=== PATIENT | male | born 1970 | race Caucasian/White ===

== ENCOUNTER 2023-11-03 04:30 | Inpatient (IN) | payer MEDICARE, MEDICAID, SELFPAY ==
[2023-11-03] VITALS (14 sets, daily range): BP systolic 102–118; BP diastolic 47–88; PULSE 124–140; RESP 18–24; TEMP 35.9–38.1; O2SAT 90–99; BMI 40.1
--- NOTE | ~2023-11-03 | CT_ITS ---
Clinical Indication: Sepsis CT Scan of the Chest, Abdomen, and Pelvis without Contrast: Technique: Contiguous sections were acquired throughout the chest, abdomen, and pelvis without IV con trast administration. Dose reduction technique was used on this scan by utilizing automated exposure control and iterative reconstruction technique. The dose-length product (DLP) was 2168.38 mGy-cm. Findings: There is no evidence of any significant mediastinal, hilar or axillary lymphadenopathy. The mediastin al soft tissues appear normal. There is no evidence of pleural or pericardial effusion. The lungs are clear, aside from dependent bibasilar atelectatic changes. The liver, pancreas, gallbladder, and adrenal glands are within normal limits. Spleen is enlarged, me asuring 19.1 cm in length. Nonobstructing right renal stones are present, measuring up to 5 mm in tayler meter. Left kidney is relatively enlarged. There is 15 mm stone at the left renal pelvis region. Ther e is a possible subcapsular left hematoma, with additional left perinephric asymmetric stranding. The re is focal air in the left lower renal pole, versus possibly within a subcapsular collection (axial image 185). There is additional air within the left ureter and left renal pelvis. No left hydronephro sis evident. No evidence of aortic aneurysm. No lymphadenopathy. No bowel obstruction. Possible wall thickening of the distal rectum versus underdistention. Possible wall thickening descending colon versus underdistention. There is air within the urinary bladder. Suprapubic catheter in place. 3 mm urinary bladder stone pre sent. There is air within the prostate or the prostatic urethra. No ascites present in the pelvis. Impression: Mildly enlarged left kidney versus possibility of isodense subcapsular hematoma of the left kidney. C orrelate with any relevant clinical history. Contrast enhanced exam, or possibly ultrasound, could be used to further evaluate for subcapsular hematoma. Focal air either within the left kidney parenchyma versus within a potential subcapsular collection n ear the lower pole. There is additional air in the left ureter and left renal pelvis. Correlate for e mphysematous pyelonephritis/pyelitis versus other iatrogenic air. Bilateral renal stones, as detailed above, largest of the left renal pelvis measuring 15 mm. Air in urinary bladder and the prostate gland or prostatic urethra, with suprapubic catheter in place . Splenomegaly. Questionable areas of wall thickening of the large bowel versus areas of under distention. Correlate for any possibility of colitis. Reviewed, dictated and finalized at location M. Impression: Mildly enlarged left kidney versus possibility of isodense subcapsular hematoma of the left kidney. Correlate with any relevant clinical history. Contrast enh anced exam, or possibly ultrasound, could be used to further evaluate for subca psular hematoma. Focal air either within the left kidney parenchyma versus within a potential martin bcapsular collection near the lower pole. There is additional air in the left u reter and left renal pelvis. Correlate for emphysematous pyelonephritis/pyeliti s versus other iatrogenic air. Bilateral renal stones, as detailed above, largest of the left renal pelvis taylor suring 15 mm. Air in urinary bladder and the prostate gland or prostatic urethra, with suprap ubic catheter in place. Splenomegaly. Questionable areas of wall thickening of the large bowel versus areas of under distention. Correlate for any possibility of colitis.
--- NOTE | ~2023-11-03 | US_ITS ---
EXAMINATION: US renal BI DATE: 11/04/2023 15:44 INDICATION: Acute kidney injury. TECHNIQUE: Multiple ultrasound grayscale images of the kidneys were obtained. COMPARISON: CT 11/03/2023 FINDINGS: Sensitivity is decreased by obesity. The right kidney measures 6.6 x 11.1 x 7.8 cm. The left kidney m easures 8.9 x 15.9 x 9.2 cm. There is a subcapsular hematoma of left kidney. There is no hydronephros is. The bladder is decompressed by a Wisdom catheter. IMPRESSION: 1. Subcapsular hematoma of left kidney. Reviewed, dictated and finalized at location A.
--- NOTE | ~2023-11-03 | US_ITS ---
EXAMINATION: US abdomen complete DATE: 11/03/2023 11:49 INDICATION: Hyperbilirubinemia. TECHNIQUE: Multiple grayscale and Doppler ultrasound images of the abdomen were obtained. COMPARISON: CT abdomen and pelvis 11/03/2023 FINDINGS: The visualized portions of the head and body of the pancreas are normal. The liver demonstr ates coarsened echotexture and surface nodularity, consistent with cirrhosis. There is normal flow in main portal vein. The gallbladder is distended. No visible gallstones. Gallbladder wall thickening i s noted, likely secondary to cirrhosis. Right kidney is normal. There is severe splenomegaly. The lef t kidney is not well visualized. Abdominal aorta and inferior vena cava are not well visualized. IMPRESSION: 1. Cirrhosis of liver with portal venous hypertension. 2. Gallbladder distention, which may be secondary to fasting. Acute cholecystitis cannot be excluded. If there is clinical concern for acute cholecystitis, consider hepatobiliary scintigraphy. 3. Left kidney not well visualized. Reviewed, dictated and finalized at location A. IMPRESSION: 1. Cirrhosis of liver with portal venous hypertension. 2. Gallbladder distention, which may be secondary to fasting. Acute cholecystit is cannot be excluded. If there is clinical concern for acute cholecystitis, co nsider hepatobiliary scintigraphy. 3. Left kidney not well visualized.
[2023-11-03] MEDS: SODIUM CHLORIDE 0.9% IV 1,000 ML 999 ML IV CONT ×3 (04:53→10:34)
[2023-11-03 05:03] LABS: Hematocrit 40.8 % (42.0-52.0); Hemoglobin 14.3 g/dL (14.0-18.0); Immature Platelet Fraction Pct 7.9 % (0.9-11.2); Mean Corpuscular Hemoglobin 30.9 pg (26-34); Mean Corpuscular Volume 88.1 fl (80-100); Mean Platelet Volume 11.6 fl (7.4-10.4); Platelet Count Result 30 k/mm3 (150-375); Red Blood Count 4.63 M/mm3 (4.6-6.20); Red Cell Distribution Width 15.9 % (11.5-14.5); White Blood Count 8.1 K/mm3 (4.5-10.0)
[2023-11-03 05:19] LABS: Lactic Acid Reflex 4.2 mmol/L (0.7-2.0)
[2023-11-03 05:21] LABS: Alanine Aminotransferase 33 U/L (6-50); Alkaline Phosphatase 82 U/L (38-126); Anion Gap 10 mmol/L (4-12); Aspartate Amino Transferase 41 U/L (17-59); Bilirubin Direct 3.9 mg/dL (0-0.3); Bilirubin,Total 7.2 mg/dL (0.2-1.3); Blood Urea Nitrogen 30 mg/dL (9-20); Calcium 8.2 mg/dL (8.4-10.2); Carbon Dioxide 18 mmol/L (22-30); Chloride 90 mmol/L (98-107); Estimated CRCL calculation 63 ml/min; Estimated Glomerular Filt Rate 32; Glucose 542 mg/dL (65-110); Lipase 21 U/L (23-300); Potassium 4.4 mmol/L (3.4-5.0); Sodium 118 mmol/L (137-145)
--- NOTE | 2023-11-03 05:35 | ED.GENADULT ---
HPI - General Adult General Chief complaint: Nausea/Vomiting/Diarrhea Stated complaint: N/V/D, BLADDER INFX, TACHY, HYPOTENSIVE Time Seen by Provider: 11/03/23 05:28 History of Present Illness HPI narrative: Patient is a 53-year-old male who presents emergency department this morning from his residential due to nausea, vomiting and diarrhea. Patient has been having these symptoms for the past 3 days, however, within the last 24 hours, patient has had over 10 vomiting and diarrheal episodes. Patient complains of mild lower abdominal, otherwise is currently denying any additional symptoms including chest pain or shortness of breath. Patient does have a suprapubic Gray catheter and EMS reports that the residential did state that there was some leaking around the suprapubic catheter. Patient is currently being treated for urinary tract infection with antibiotics. Monitor her symptoms or concerns at this time. Related Data Home Medications Medication Instructions Recorded Confirmed bisacodyl 5 mg tablet 5 mg PO ONCE 11/03/23 11/03/23 ergocalciferol (vitamin D2) 1,250 1,250 mcg PO WEEKLY 11/03/23 11/03/23 mcg (50,000 unit) capsule ferrous sulfate 325 mg (65 mg 325 mg PO DAILY 11/03/23 11/03/23 iron) tablet folic acid 1 mg tablet 1 mg PO DAILY 11/03/23 11/03/23 gabapentin 300 mg tablet 300 mg PO TID 11/03/23 11/03/23 insulin NPH-regular 70-30 U-100 subcut 11/03/23 insulin 100 unit/mL subcutaneous pen (Humulin 70/30 U-100 Campos) ipratropium 20 mcg-albuterol 100 inhalation 11/03/23 mcg/actuation mist for inhalation (Combivent Respimat) levetiracetam 500 mg tablet 500 mg PO BID 11/03/23 11/03/23 levothyroxine 50 mcg tablet 50 mcg PO DAILY 11/03/23 11/03/23 magnesium 200 mg tablet 200 mg PO DAILY 11/03/23 11/03/23 melatonin 3 mg tablet 3 mg PO HS PRN Urinary Retention 11/03/23 11/03/23 midodrine 5 mg tablet 5 mg PO TID 11/03/23 11/03/23 mirtazapine 30 mg tablet 30 mg PO HS 11/03/23 11/03/23 pantoprazole 40 mg tablet,delayed 40 mg PO QAM 11/03/23 11/03/23 release (Protonix) phenazopyridine 200 mg tablet 200 mg PO TID PRN Urinary Retention 11/03/23 11/03/23 sertraline 50 mg tablet 50 mg PO DAILY 11/03/23 11/03/23 suvorexant 20 mg tablet (Belsomra) 20 mg PO HS 11/03/23 11/03/23 tamsulosin 0.4 mg capsule 0.4 mg PO DAILY 11/03/23 11/03/23 tolterodine 2 mg tablet 2 mg PO BID 11/03/23 11/03/23 Allergies Allergy/AdvReac Type Severity Reaction Status Date / Time metformin Allergy Hives Verified 11/03/23 04:42 Review of Systems Review of Systems: All systems are reviewed and are negative unless stated otherwise in the HPI. Exam Narrative: General: Alert, awake, afebrile, obese. HEENT: PERRL, no rhinorrhea, no post nasal drip, oropharynx clear. Cardiovascular: Tachycardic with regular rhythm, no murmurs, rubs or gallops, no peripheral edema. Respiratory: Clear to auscultation bilaterally, no tachypnea, no wheezing, no rhonchi, no rubs, no respiratory distress. Abdomen: Soft, nontender, nondistended, no rebound, no guarding, no peritoneal signs, suprapubic gray catheter. Musculoskeletal: No joint swelling or deformity, normal muscle tone. Skin: No rashes or petechia, no signs of infection. Psychiatric: Alert and oriented, normal behavior and judgment for situation. Neurological: Alert and oriented to person, place, and time. Follows all commands. No focal deficits, speech is clear and fluent. Course Vital Signs Vital signs: Vital Signs Temperature 97.9 F 11/03/23 04:27 Pulse Rate 136 H 11/03/23 04:27 Respiratory Rate 11/03/23 04:27 Blood Pressure 114/65 11/03/23 04:27 Pulse Oximetry 92 11/03/23 04:27 Oxygen Delivery Room Air 11/03/23 04:27 Temperature 97.9 F 11/03/23 04:27 Pulse Rate 138 H 11/03/23 07:09 Respiratory Rate 11/03/23 07:09 Blood Pressure 108/88 11/03/23 07:09 Pulse Oximetry 96 11/03/23 07:09 Oxygen Delivery Room Air 11/03/23 04:27 Me
[2023-11-03 05:37] LABS: Influenza A QL RT-PCR Negative (Negative); Influenza B QL RT-PCR Negative (Negative); RSV RNA, RT-PCR Negative (Negative); SARS-CoV-2 RNA PCR Negative (Negative)
[2023-11-03 05:38] LABS: Band Neutrophils Percent 9 % (0-6); Lymphocytes Percent Manual 5 % (18-44); Metamyelocytes Percent 3 %; Total Cells Counted 100
[2023-11-03 05:39] LABS: Monocytes Percent Manual 5 % (3-9)
[2023-11-03 05:40] LABS: Neutrophils Absolute Manual 7.04 K/mm3 (1.3-6.7); Neutrophils Percent Manual 78 % (46-73); Platelet Estimate Decreased (Adequate); Schistocytes None Seen
[2023-11-03] MEDS: levoFLOXacin 750 MG/D5W 150 ML 750 MG/150 ML BAG 100 MG IVPB (06:15)
[2023-11-03] MEDS: SODIUM CHLORIDE 0.9% IV 1,000 ML 150 ML IV CONT ×4 (06:29→22:00)
--- NOTE | 2023-11-03 07:41 | PC.NURSE ---
spoke to EDP, ased about new catheter, EDP denied need for one NNO
[2023-11-03 07:58] LABS: Reflex Lactic Acid Yes or No Add Lactic
[2023-11-03 08:12] LABS: Glucose Point of Care > 500 mg/dl (65-105)
--- NOTE | 2023-11-03 08:13 | PC.NURSE ---
recheck of BG was 516 spoke to EDP NEW ORDERS RECEIVED
[2023-11-03] MEDS: INSULIN ASPART (*BKC) 100 UNITS/ML 10 UNITS SUB-Q ×4 (08:20→16:50)
--- NOTE | 2023-11-03 08:47 | PM.IMHP ---
H&P: HPI History of Present Illness Date/Time: 11/03/23 08:47 Chief Complaint: n/v/d Narrative: Patient is a 53-year-old male who admitted from emergency dept. (resident of a [facility]) due to nausea, vomiting and diarrhea.? Patient has been having these symptoms for the past 3 days, however, within the last 24 hours, patient has had over 10 vomiting and diarrheal episodes.? Patient complains of mild lower abdominal, otherwise is currently denying any additional symptoms including chest pain or shortness of breath.? Patient does have a suprapubic Wisdom catheter and EMS reports that the [facility] did state that there was some leaking around the suprapubic catheter.? Patient is currently being treated for urinary tract infection with antibiotics.? Monitor her symptoms or concerns at this time. IN ED- pt received 2 l of NS, following with 150 ml/h. EKG was completed- sinus tachycardia-hr 133- No ST changes, T wave inversions or evidence of acute ischemia. Laboratory results obtained revealing a lactic acid of 4.2, sodium of 118, BUN of 30, creatinine of 2.2 stool.? No previous blood work available for comparison, patient's baseline creatinine unknown.? At this time, due to concern for sepsis, blood cultures were drawn and patient was administered 750 mg of IV levofloxacin. NO URINE/CULTURE WAS OBTAINED - CT chest/abdomen and pelvis with without IV contrast- 1. Mildly enlarged left kidney versus possibility of isodense subcapsular hematoma of the left kidney. Correlate with any relevant clinical history. Contrast enhanced exam, or possibly ultrasound, could be used to further evaluate for subcapsular hematoma. 2. Focal air either within the left kidney parenchyma versus within a potential subcapsular collection near the lower pole. There is additional air in the left ureter and left renal pelvis. Correlate for emphysematous pyelonephritis/pyelitis versus other iatrogenic air. - Nephrology was consulted- noted from ED reviewed: metals analyst, Dr. Funez at 0683 who both agree that it is unclear if the focal air is due to patient's suprapubic catheter.? Case was also discussed with the on-call urologist, Dr. Arellano at 1803 who informed me that the only way to find out is to see? how patient responds to antibiotic, no urological intervention needed at this time.? Patient was started on IV vancomycin and Zosyn for broad spectrum coverage . 11/02- pt is seen and examined. per RN- pt would have someone come in from urology to assess Suprapubic cath as it is not draining well and leaking- as that is why UA was not collected. Pt is a poor historian- appears alert but unable to provide much info about previous hospitalizations/care. Unsure what his baseline CR is and where he sees urology/nephrology. Generalized tenderness to abd. States nausea but able to ok. Denies headache, chest pain, sob. Reports taht he has no family and makes all decisions for himself. He is taking keppra but reports no seizures- unsure of last one. Takes thyroid med, midodrine- unsure 100% wgy0 thinks his BP usually too low. Unsure when he saw cardiology last. Take combivent but not sure when he saw pulm. Review of Systems Constitutional: Constitutional: Reports difficulty sleeping and Reports fatigue Cardiovascular: Cardiovascular: Denies chest pain, Denies diaphoresis and Denies leg edema Respiratory: Respiratory: Denies chest congestion, Denies cough and Denies dyspnea Gastrointestinal: Gastrointestinal: Reports abdominal pain Genitourinary: Comments: suprapubic catheter PMFSH Social History Social History Smoking status: Former smoker Tobacco type: cigarettes Second hand tobacco smoke exposure: No Alcohol intake: never Substance use: never Do You Feel Safe in your Home?: Yes Lack of Transportation: No Lack of Food: Never True Current Housing: I Have Housing Concerned About Future Housin
[2023-11-03] MEDS: PIPERACILLIN/TAZ 4.5G/NS 100ML 4.5 GM/100 ML BAG IVPB (08:56)
[2023-11-03 09:23] LABS: Lactic Acid 4.2 mmol/L (0.7-2.0)
--- NOTE | 2023-11-03 09:43 | PC.NURSE ---
[facility] [facility] Admission Note: The patient,Alan Garcia,53 y/o, was given written information regarding hospital policies, unit procedures and contact persons. Lab at bedside to draw labs. Patient bathed with soap and water, new gown and leads placed on patient at this time. No acute distress noted at this time. Patient's smoking status:
[2023-11-03 09:48] LABS: Hemoglobin A1C 12.7 % (<5.7)
[2023-11-03 09:55] LABS: Glucose Point of Care 478 mg/dl (65-105)
[2023-11-03] MEDS: GABAPENTIN 300 MG CAPSULE PO ×2 (09:59→12:18)
[2023-11-03] MEDS: PANTOPRAZOLE 40 MG TABLET PO (10:00)
[2023-11-03] MEDS: FOLIC ACID 1 MG TABLET PO (10:00)
[2023-11-03] MEDS: SERTRALINE HCL 50 MG TABLET PO (10:00)
[2023-11-03] MEDS: TAMSULOSIN HCL 0.4 MG CAPSULE PO (10:00)
[2023-11-03] MEDS: VANCOMYCIN 1,250 MG/NS 250 ML 1,250 MG/250 ML BAG 166.67 MG IVPB ×2 (10:00→10:34)
[2023-11-03] MEDS: FERROUS SULFATE 325 MG TABLET DR PO (10:00)
[2023-11-03] MEDS: levETIRAcetam 500 MG TABLET PO ×2 (10:00→16:51)
--- NOTE | 2023-11-03 10:19 | ECG_ITS ---
SEE SCANNED COPY FOR CONFIRMED REPORT MTDD
[2023-11-03] MEDS: MAGNESIUM OXIDE 200 MG TABLET PO (10:33)
[2023-11-03] MEDS: TOLTERODINE TARTRATE 2 MG TABLET PO ×2 (10:34→16:51)
[2023-11-03] MEDS: oxyCODONE HCL (*CRX) 5 MG TAB IR 10 MG PO ×2 (10:35→20:46)
[2023-11-03 11:37] LABS: Alanine Aminotransferase 29 U/L (6-50); Albumin Level 2.9 g/dL (3.5-5.1); Alkaline Phosphatase 71 U/L (38-126); Anion Gap 11 mmol/L (4-12); Aspartate Amino Transferase 41 U/L (17-59); Bilirubin,Total 6.9 mg/dL (0.2-1.3); Blood Urea Nitrogen 34 mg/dL (9-20); Calcium 7.8 mg/dL (8.4-10.2); Carbon Dioxide 14 mmol/L (22-30); Chloride 91 mmol/L (98-107); Estimated CRCL calculation 52 ml/min; Estimated Glomerular Filt Rate 30; Glucose 452 mg/dL (65-110); Sodium 116 mmol/L (137-145)
--- NOTE | 2023-11-03 12:06 | PC.NURSE ---
Called [facility]NER related to sodium level at 1140, no answer. Left voice message stating sodium level, patient intake amount and status of IVF bolus. Called B[employer]NER back at 1200pm to report blood glucose level of 464 POC, orders received at this time to give Insulin (see eMAR). During this conversation, BANK [employer]NER addressed sodium level and stated that she did not want to put him on a sodium restriction at this time. To please monitor intake and offer ice chips as IVF are currently infusing and patient had a large amount of water intake prior to the lab draw.
[2023-11-03] MEDS: INSULIN ASPART (*BKC) 100 UNITS/ML SUB-Q ×2 (12:18→16:50)
[2023-11-03] MEDS: MIDODRINE HCL 2.5 MG TABLET 5 MG PO ×2 (12:18→16:51)
[2023-11-03] MEDS: cefTRIAXone 2 GM/NS 100 ML 2 GM/100 ML BAG IVPB (12:20)
[2023-11-03 13:13] LABS: Glucose Point of Care 464 mg/dl (65-105)
[2023-11-03] MEDS: WATER FOR IRRIGATION, STERILE 1,000 ML BOTTLE 1000 ML (13:30)
--- NOTE | 2023-11-03 13:38 | WPDURCON ---
Assessment and Plan Assessment and plan (1) Sepsis: Code(s): A41.9 - Sepsis, unspecified organism Status: Acute Assessment and Plan: Secondary to pyelonephritis as below. Being managed per primary team. Blood cultures pending. Urine culture not obtained. Would recommend completion of urine culture although patient has already received broad-spectrum IV antibiotics which will be continued (2) Emphysematous pyelonephritis: Code(s): N12 - Tubulo-interstitial nephritis, not specified as acute or chronic Status: Acute Assessment and Plan: CT findings reviewed. Continue empiric IV antibiotics and monitor clinically. Consider repeat CT if lack of improvement. No indication for acute urologic intervention at this time (3) Suprapubic catheter: Code(s): Z93.59 - Other cystostomy status Status: Acute Assessment and Plan: SP tube removed and replaced today. SP tube required irrigation with return of copious amounts of very purulent urine. See below. Flush catheter q shift and as needed if any issues with drainage (4) Nephrolithiasis: Code(s): N20.0 - Calculus of kidney Status: Acute Assessment and Plan: Has very large left renal pelvis stone. Will need to follow-up with his primary urologist for management Urology Consult Note HPI Date Seen: 11/03/23 Requesting Physician: J Luis Oliver MD Primary Care Provider: Idris Huffman, Consult Narrative Narrative: Alan Garcia is a 53 year old male senior living resident with a history of kidney stones and neurogenic bladder managed with chronic SP tube (established with Dr. Kitty Echols at [facility]) who is being seen in consultation for evaluation of emphysematous pyelonephritis. Patient presented to the emergency department on 11/02/2023 from his nursing facility due to concerns of nausea, vomiting, and diarrhea for 3 days. On arrival, he was tachycardic, afebrile, WBC 8.1, creatinine 2.2, lactic 4.2. UA was not obtained. A CT of his abdomen/pelvis showed a 15 mm left renal pelvis stone along with possible subcapsular hematoma, left perinephric stranding, and focal erythema left lower pole as well as air in the left ureter and renal pelvis. There was no hydronephrosis. Noted to have air in the bladder and prostate as well as a 3 mm bladder stone. The SP tube is not visualized within the bladder. He states that his SP tube has not been changed in ?a long time . He is unsure why. At the time my evaluation, he is resting comfortably in bed. He offers no complaints other than being thirsty. His SP tube is not draining any urine and there is some sediment within the tubing. As the SP tube was not visualized within the bladder, this was removed and replaced. Upon removal of the SP tube, he had a significant amount of purulent urine gushing from the cystostomy site. A 16 Kiswahili catheter was replaced without difficulty and balloon inflated with 10 cc sterile water. There was no initial drainage from the SP tube. The catheter was irrigated with about 300 cc sterile water with return of copious amounts of thick sediment which was preventing urine from draining. Following irrigation, SP tube is draining appropriately. Review of Systems Review of Systems: All systems reviewed & are unremarkable except as noted in HPI and below PMFSH Social History Social History Smoking status: Former smoker Tobacco type: cigarettes Second hand tobacco smoke exposure: No Alcohol intake: never Substance use: never Do You Feel Safe in your Home?: Yes Lack of Transportation: No Lack of Food: Never True Current Housing: I Have Housing Concerned About Future Housing: No Difficulty Paying Gas/Electric Bills: No Difficulty Paying for Meds: No Currently Unemployed: No Education: High School Diploma/GED Difficulty w/ Childcare or Fami
[2023-11-03 16:06] LABS: Hematocrit 34.6 % (42.0-52.0); Hemoglobin 12.2 g/dL (14.0-18.0); Mean Corpuscular HGB Conc 35.3 g/dl (32-36); Mean Corpuscular Volume 87.8 fl (80-100); Mean Platelet Volume 11.5 fl (7.4-10.4); Platelet Count Result 27 k/mm3 (150-375); Red Blood Count 3.94 M/mm3 (4.6-6.20); Red Cell Distribution Width 16.1 % (11.5-14.5); White Blood Count 8.4 K/mm3 (4.5-10.0)
[2023-11-03 16:22] LABS: Alanine Aminotransferase 27 U/L (6-50); Albumin Level 2.7 g/dL (3.5-5.1); Alkaline Phosphatase 57 U/L (38-126); Anion Gap 10 mmol/L (4-12); Aspartate Amino Transferase 42 U/L (17-59); Bilirubin,Total 5.5 mg/dL (0.2-1.3); Blood Urea Nitrogen 36 mg/dL (9-20); Calcium 7.5 mg/dL (8.4-10.2); Carbon Dioxide 15 mmol/L (22-30); Chloride 93 mmol/L (98-107); Estimated CRCL calculation 48 ml/min; Estimated Glomerular Filt Rate 27; Glucose 348 mg/dL (65-110); Potassium 4.1 mmol/L (3.4-5.0); Sodium 118 mmol/L (137-145)
[2023-11-03 19:15] LABS: Appearance Urine Turbid (Clear); Bilirubin Urine 2+ (Negative); Blood Urine 3+ (Negative); Color Urine Orange (Yellow); Glucose Urine UA Trace mg/dL (Negative); Ketones Urine Negative (Negative); Leukocyte Esterase Ur 3+ LEU/UL (Negative); Nitrate Urine Positive (Negative); Protein Urine 3+ mg/dL (Negative); Specific Grav Ur 1.013 (1.001-1.035); pH Urine 7.5 (5.0-9.0)
[2023-11-03 19:22] LABS: Bacteria Urine 4+ /hpf; Need Manual Microscopic Reviewed; RBC Urine >100 /hpf (0-2); Squamous Epithelial Cell Urine Occasional /hpf (Few)
[2023-11-03 19:24] LABS: WBC Urine 51-100 /hpf (0-3)
[2023-11-03 19:25] LABS: Add Urine Microscopic? YES
[2023-11-03] MEDS: INSULIN GLARGINE (*BKC) 100 UNITS/ML 15 UNITS SUB-Q (20:35)
[2023-11-03 20:36] LABS: Glucose Point of Care 297 mg/dl (65-105)
[2023-11-03 21:35] LABS: Sodium 118 mmol/L (137-145)
[2023-11-03 21:36] LABS: Lactic Acid Reflex 2.6 mmol/L (0.7-2.0)
[2023-11-04] VITALS (21 sets, daily range): BP systolic 91–136; BP diastolic 40–60; PULSE 103–122; RESP 16–22; TEMP 36.1–36.9; O2SAT 90–99
[2023-11-04 00:22] LABS: Reflex Lactic Acid Yes or No Add Lactic
[2023-11-04 01:24] LABS: Sodium 118 mmol/L (137-145)
[2023-11-04 05:00] LABS: INR 1.8; Prothrombin Time 21.6 Seconds (11.1-14.7)
[2023-11-04 05:02] LABS: Partial Thromboplastin Time 50.1 Seconds (22.3-36.8)
[2023-11-04 05:20] LABS: Ammonia 17 umol/L (9-30)
[2023-11-04 05:25] LABS: Sodium 119 mmol/L (137-145)
[2023-11-04 05:35] LABS: Thyroid Stimulating Hormone 0.992 uIU/mL (0.465-4.680)
[2023-11-04] MEDS: SODIUM CHLORIDE 0.9% IV 1,000 ML 150 ML IV CONT ×2 (05:40→18:41)
[2023-11-04] MEDS: LEVOTHYROXINE SODIUM 50 MCG TABLET PO (05:42)
[2023-11-04 05:56] LABS: Glucose Point of Care 356 mg/dl (65-105)
[2023-11-04 06:53] LABS: Hematocrit 31.5 % (42.0-52.0); Hemoglobin 10.8 g/dL (14.0-18.0); Immature Platelet Fraction Pct 9.9 % (0.9-11.2); Mean Corpuscular HGB Conc 34.3 g/dl (32-36); Mean Corpuscular Hemoglobin 30.4 pg (26-34); Mean Corpuscular Volume 88.7 fl (80-100); Mean Platelet Volume 11.8 fl (7.4-10.4); Red Blood Count 3.55 M/mm3 (4.6-6.20); Red Cell Distribution Width 16.3 % (11.5-14.5); White Blood Count 5.1 K/mm3 (4.5-10.0)
[2023-11-04 07:35] LABS: Sodium Urine Random 33 meq/L
[2023-11-04 07:46] LABS: Platelet Count Result 21 k/mm3 (150-375)
[2023-11-04 07:50] LABS: Platelet Estimate Decreased (Adequate)
[2023-11-04 07:51] LABS: Band Neutrophils Percent 2 % (0-6); Lymphocytes Absolute Manual 0.35 K/mm3 (1.1-4.5); Lymphocytes Percent Manual 7 % (18-44); Monocytes Absolute Manual 0.25 K/mm3 (0.1-0.90); Monocytes Percent Manual 5 % (3-9); Neutrophils Absolute Manual 4.48 K/mm3 (1.3-6.7); Neutrophils Percent Manual 86 % (46-73)
[2023-11-04 07:52] LABS: Schistocytes None Seen; Toxic Granulation Present
[2023-11-04 08:44] LABS: Alanine Aminotransferase 24 U/L (6-50); Albumin Level 2.3 g/dL (3.5-5.1); Alkaline Phosphatase 57 U/L (38-126); Anion Gap 8 mmol/L (4-12); Aspartate Amino Transferase 33 U/L (17-59); Bilirubin,Total 3.9 mg/dL (0.2-1.3); Blood Urea Nitrogen 45 mg/dL (9-20); Calcium 7.3 mg/dL (8.4-10.2); Carbon Dioxide 15 mmol/L (22-30); Chloride 96 mmol/L (98-107); Estimated CRCL calculation 38 ml/min; Estimated Glomerular Filt Rate 21; Glucose 307 mg/dL (65-110); Potassium 3.9 mmol/L (3.4-5.0); Sodium 119 mmol/L (137-145)
[2023-11-04] MEDS: INSULIN ASPART (*BKC) 100 UNITS/ML SUB-Q ×3 (08:45→18:56)
[2023-11-04] MEDS: INSULIN ASPART (*BKC) 100 UNITS/ML 10 UNITS SUB-Q ×3 (08:45→18:57)
[2023-11-04] MEDS: TOLTERODINE TARTRATE 2 MG TABLET PO ×2 (08:49→18:41)
[2023-11-04] MEDS: FERROUS SULFATE 325 MG TABLET DR PO (08:49)
[2023-11-04] MEDS: PANTOPRAZOLE 40 MG TABLET PO (08:49)
[2023-11-04] MEDS: FOLIC ACID 1 MG TABLET PO (08:49)
[2023-11-04] MEDS: MIDODRINE HCL 2.5 MG TABLET 5 MG PO ×3 (08:50→18:42)
[2023-11-04] MEDS: levETIRAcetam 500 MG TABLET PO ×2 (08:50→18:41)
[2023-11-04] MEDS: SERTRALINE HCL 50 MG TABLET PO (08:50)
[2023-11-04] MEDS: MAGNESIUM OXIDE 200 MG TABLET PO (08:50)
[2023-11-04 09:05] LABS: Glucose Point of Care 298 mg/dl (65-105)
[2023-11-04] MEDS: MEROPENEM 1 GM/NS 100 ML 1 GM/100 ML BAG IVPB ×2 (09:30→20:39)
--- NOTE | 2023-11-04 10:43 | PM.IMPN ---
Progress Note: A&P Assessment and Plan (1) Septic shock: Code(s): A41.9 - Sepsis, unspecified organism; R65.21 - Severe sepsis with septic shock Status: Acute Assessment and Plan: Patient presents with n/v and diarrhea. CT Ch/A/P showing enlarged left kidney wiht possible subcapsular hematoma and focal air either within the left kidney parenchyma vs within a potential subcapsular collection. Additional air seen in the left ureter and left renal pelvis. Secondary to emphysematous pyelonephritis WBC normal. Lactic at 4.2 and has trended to normal now after approriate fluid resuscitation Received 2L fluids and started on 150mL/hr NS levaquin and Zosyn once each in ED and started on Rocephin and Vanco BCx growing GNB Urine/ua culture not collected prior to antibiotics; UCx pending. Urology consultled and has changed suprapubic cath Vanco stopped and Rocephin changed to meropenem. -continue abx Arrange for transfer to [facility]; request old records [facility] has agreed to accept patient in transfer. Will hold off on plt transfusion since patient is stable and transfer in process. We will proceed if transfer is delayed. Discussed wit Dr Moody (2) Emphysematous pyelonephritis: Code(s): N12 - Tubulo-interstitial nephritis, not specified as acute or chronic Status: Acute Assessment and Plan: As above. (3) Kidney hematoma without rupture of capsule, without open wound into cavity: Code(s): S37.019A - Minor contusion of unspecified kidney, initial encounter Status: Acute Assessment and Plan: Patient with possible capsular hematoma of left kidney Renal US confirms left renal capsular hematoma. Due to current infection and related thrombocytopenia. Transfuse plt since hematoma confirmed. Continue abx Urology following (4) Thrombocytopenia: Code(s): D69.6 - Thrombocytopenia, unspecified Status: Acute Assessment and Plan: Plt count 30K on admisison and has dropped to 21K. Splenomegaly noted by CT scan. Abd US showing cirrhosis so probably related to sequestration. Transfuse given known hematoma and Hgb dropping from 14 to 10.8 (but could be related to IV fluids). (5) Hypovolemia: Code(s): E86.1 - Hypovolemia Status: Acute Assessment and Plan: - IV fluid - monitor cmp (6) Hyponatremia: Code(s): E87.1 - Hypo-osmolality and hyponatremia Status: Acute Assessment and Plan: Sodium 118 on admission and dropped to 116. He was fluid resuscitated for sepsis and sodium remained stable Some of this could be related to hyperglycemia and/or SIADH and/or cirrhosis. Not fluid overloaded. Urine Na 33 but other studies pending. Nephrology consulted and discussed. Continue IV fluids. correct hyperglycemia (7) Renal failure: Code(s): N19 - Unspecified kidney failure Status: Acute Assessment and Plan: Cr 2.2 on admission but has climbed to 3.2 today despite IV fluids. probably a componenet of ATN or could be acute/chronic UOP 50mL yesterday but up to 1050mL so far today. Bicarb low at 15 today. Potassium normal. Does not appear to be fluid overloaded. Will give oral bicarb and IV bicarb once. Back down on fluids now that BP is better. Renal US showing no hydronephrosis. Nephrology following Monitor UOP, electrolytes and renal fxn (8) T2DM (type 2 diabetes mellitus): Code(s): E11.9 - Type 2 diabetes mellitus without complications Status: Acute Assessment and Plan: HgbA1c 14. The patient's blood glucose was reviewed on 11/03 Glucose remains poorly controlled. Continue AccuCheks covering with sliding scale. Hypoglycemia protocol available as needed. Advance lantus (9) Suprapubic catheter: Code(s): Z93.59 - Other cystostomy status Status: Acute Assessment and Plan: probably with neurogenic bladder Urology following. Catheter has been changed out (10
[2023-11-04] MEDS: oxyCODONE HCL (*CRX) 5 MG TAB IR 10 MG PO ×2 (10:45→15:00)
[2023-11-04 12:03] LABS: Immature Platelet Fraction Pct 9.8 % (0.9-11.2)
[2023-11-04 12:12] LABS: Platelet Count Result 21 k/mm3 (150-375); Sodium 119 mmol/L (137-145)
[2023-11-04 12:21] LABS: Creatine Kinase 39 U/L (55-170)
[2023-11-04] MEDS: SODIUM BICARBONATE 8.4% 50 MEQ/50 ML SYRINGE IV PUSH (12:35)
--- NOTE | 2023-11-04 15:43 | WPDUROPN2 ---
Progress Note: A&P Assessment and Plan (1) Sepsis: Code(s): A41.9 - Sepsis, unspecified organism Status: Acute Assessment and Plan: Secondary to pyelonephritis as below. Being managed per primary team. Blood cultures pending. Urine culture pending but obtained after initiation of antibiotics. 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 Continue empiric IV antibiotics and monitor clinically. Consider repeat CT if lack of improvement. No indication for acute urologic intervention at this time (3) Suprapubic catheter: Code(s): Z93.59 - Other cystostomy status Status: Acute Assessment and Plan: SP tube removed and replaced 11/03/23. SP tube required irrigation with return of copious amounts of very purulent urine. Flush catheter q shift and as needed if any issues with drainage. Discussed with patient the need for routine SP tube changes at least once/month. Will need to provide orders to nursing facility upon discharge to ensure this is being completed. (4) Nephrolithiasis: Code(s): N20.0 - Calculus of kidney Status: Acute Assessment and Plan: Has very large left renal pelvis stone. Will need to follow-up with his primary urologist for management Subjective Subjective Date/Time Seen: 11/04/23 15:43 Interval history: Alan is doing fair today. He complains of being thirsty. Reports no issues with his SP tube. He states it is draining better and he is not having any surrounding leakage. He denies N/V/F/C. Review of Systems Review of Systems: All systems reviewed & are unremarkable except as noted in HPI and below Exam Narrative: General: Obese, chronically ill-appearing, awake, alert, comfortable, no acute distress HEENT: Normocephalic, atraumatic, sclerae anicteric Respiratory: Normal respiratory effort, no accessory muscle use Abdomen: Obese abdomen, nondistended, soft, nontender : Cystostomy site appears healthy with no concerns for surrounding infection, SP tube in place draining laura colored urine Skin: Normal coloration, warm and dry Neurologic: No focal neuro deficits noted Psychiatric: Appropriate mood and affect, judgment and insight intact Objective Data Vital Signs Vital Signs: Vital Signs - 24 hr 11/03/23 16:00 11/03/23 16:00 11/03/23 16:00 Temperature 100.6 F H Pulse Rate 133 H 133 H 133 H Respiratory Rate 24 H 24 H Blood Pressure 107/51 L Pulse Oximetry 97 97 Oxygen Delivery Room Air 11/03/23 18:00 11/03/23 20:11 11/03/23 20:00 Temperature 97.9 F Pulse Rate 129 H 128 H 126 H Respiratory Rate 22 H Blood Pressure 117/47 L Pulse Oximetry 99 Oxygen Delivery 11/03/23 22:00 11/04/23 00:46 11/04/23 00:00 Temperature 97.6 F Pulse Rate 125 H 118 H 120 H Respiratory Rate 22 H Blood Pressure 118/40 L Pulse Oximetry 99 Oxygen Delivery 11/04/23 02:00 11/04/23 04:51 11/04/23 04:00 Temperature 98.0 F Pulse Rate 113 H 112 H 114 H Respiratory Rate 22 H Blood Pressure 110/45 L Pulse Oximetry 99 Oxygen Delivery 11/04/23 06:00 11/04/23 07:58 11/04/23 10:40 Temperature 98.2 F Pulse Rate 106 H 105 H Respiratory Rate 22 H Blood Pressure 91/52 L 115/60 Pulse Oximetry 90 Oxygen Delivery 11/04/23 08:00 11/04/23 08:00 11/04/23 10:00 Temperature Pulse Rate 103 H 103 H 105 H Respiratory Rate 22 H Blood Pressure Pulse Oximetry 90 Oxygen Delivery Room Air 11/04/23 11:36 11/04/23 15:25 Temperature 97.0 F L 97.3 F L Pulse Rate 105 H 110 H Respiratory Rate 20 20 Blood Pressure 96/42 L 136/55 L Pulse Oximetry 96 96 Oxygen Delivery Intake/Output Intake/Output: Intake & Output 11/01/23 11/02/23 11/03/23 11/04/23 23:59 23:59 23:59 23:59 Intake Total 4842.5 2130 Output
--- NOTE | 2023-11-04 16:04 | P.CONNP_ITS ---
Assessment and Plan Assessment and plan (1) TOI (acute kidney injury): Code(s): N17.9 - Acute kidney failure, unspecified Status: Acute Assessment and Plan: * normal creatinine in July 2023 * creatinine 2.2mg/dl on admission -- up to 3.2mg/dl * given history and testing to date, suspect ATN from sepsis/infection * better urine output noted since admission and with suprapubic catheter exchange * renal ultrasound noted * admission CT imaging noted as well * acidosis related to TOI/ARF and lactic acidosis -- giving oral sodium bicarbonate to compensate * remains at risk for [employer]/dialysis * follow trend of repeat labs and UOP (2) Sepsis: Code(s): A41.9 - Sepsis, unspecified organism Status: Acute Assessment and Plan: * presumably due t0 emphysematoous pyelonephritis based on admission imaging * lactic acidosis on admission but better s/p IVF resuscitation * blood culture with GNB; urine culture pending * on IV antibiotics * follow trend of hemodynamics * continue supportive therapy (3) Hyponatremia: Code(s): E87.1 - Hypo-osmolality and hyponatremia Status: Acute Assessment and Plan: * acute * sodium 135mmol/L on July 2023 * presumably due to a combo of volume depletion and infection/sepsis * cannot discount a component related to hyperglycemia and liver cirrhosis * relatively stable at this time despite aggressive resuscitation * continue IVF support for now (4) Emphysematous pyelonephritis: Code(s): N12 - Tubulo-interstitial nephritis, not specified as acute or chronic Status: Acute Assessment and Plan: * as noted by admission imaging * see #2 (5) Kidney hematoma without rupture of capsule, without open wound into cavity: Code(s): S37.019A - Minor contusion of unspecified kidney, initial encounter Status: Acute Assessment and Plan: * confirmed by renal ultrasound * probably due to infection in conjunction with thrombocytopenia * platelet transfusion per protocol * Urology following (6) Suprapubic catheter: Code(s): Z93.59 - Other cystostomy status Status: Chronic Assessment and Plan: * in place secondary to neurogenic bladder * has since been changed out since admission * Urology following (7) Diabetes: Code(s): E11.9 - Type 2 diabetes mellitus without complications Status: Acute Assessment and Plan: * follow accu-cheks * glycemic control per hospitalists Greater than 20 minutes was spent in review of his electronic medical records available including what office/ progress notes I was able to get from [facility] regarding his complex past medical history and recent hospitalization there in July of 2023. I also discussed my concerns with the patient regarding his worsening renal function coupled with his electrolyte abnormalities including his hyponatremia and the possibility that he may require more invasive therapies including renal replacement therapy/dialysis and he appeared to voice understanding. I will continue follow patient with you while he remains hospitalized make further recommendations as deemed necessary. Thank you for allowing me to participate in the care of this patient. History of Present Illness Reason for Consult Consult date: 11/04/23 Reason for consult: acute renal failure and hyponatremia Chief Complaint Chief complaint: SEPSIS,HYPOVOLEMIA,DEHYDRATION,CONCERN FOR EMPHYSE History of Present Illness Narrative: Most of the history enio
--- NOTE | 2023-11-04 16:04 | PM.CNNEP ---
Assessment and Plan Assessment and plan (1) TOI (acute kidney injury): Code(s): N17.9 - Acute kidney failure, unspecified Status: Acute Assessment and Plan: normal creatinine in July 2023 creatinine 2.2mg/dl on admission -- up to 3.2mg/dl given history and testing to date, suspect ATN from sepsis/infection better urine output noted since admission and with suprapubic catheter exchange renal ultrasound noted admission CT imaging noted as well acidosis related to TOI/ARF and lactic acidosis -- giving oral sodium bicarbonate to compensate remains at risk for [employer]/dialysis follow trend of repeat labs and UOP (2) Sepsis: Code(s): A41.9 - Sepsis, unspecified organism Status: Acute Assessment and Plan: presumably due t0 emphysematoous pyelonephritis based on admission imaging lactic acidosis on admission but better s/p IVF resuscitation blood culture with GNB; urine culture pending on IV antibiotics follow trend of hemodynamics continue supportive therapy (3) Hyponatremia: Code(s): E87.1 - Hypo-osmolality and hyponatremia Status: Acute Assessment and Plan: acute sodium 135mmol/L on July 2023 presumably due to a combo of volume depletion and infection/sepsis cannot discount a component related to hyperglycemia and liver cirrhosis relatively stable at this time despite aggressive resuscitation continue IVF support for now (4) Emphysematous pyelonephritis: Code(s): N12 - Tubulo-interstitial nephritis, not specified as acute or chronic Status: Acute Assessment and Plan: as noted by admission imaging see #2 (5) Kidney hematoma without rupture of capsule, without open wound into cavity: Code(s): S37.019A - Minor contusion of unspecified kidney, initial encounter Status: Acute Assessment and Plan: confirmed by renal ultrasound probably due to infection in conjunction with thrombocytopenia platelet transfusion per protocol Urology following (6) Suprapubic catheter: Code(s): Z93.59 - Other cystostomy status Status: Chronic Assessment and Plan: in place secondary to neurogenic bladder has since been changed out since admission Urology following (7) Diabetes: Code(s): E11.9 - Type 2 diabetes mellitus without complications Status: Acute Assessment and Plan: follow accu-cheks glycemic control per hospitalists Greater than 20 minutes was spent in review of his electronic medical records available including what office/ progress notes I was able to get from [facility] regarding his complex past medical history and recent hospitalization there in July of 2023. I also discussed my concerns with the patient regarding his worsening renal function coupled with his electrolyte abnormalities including his hyponatremia and the possibility that he may require more invasive therapies including renal replacement therapy/dialysis and he appeared to voice understanding. I will continue follow patient with you while he remains hospitalized make further recommendations as deemed necessary. Thank you for allowing me to participate in the care of this patient. History of Present Illness Reason for Consult Consult date: 11/04/23 Reason for consult: acute renal failure and hyponatremia Chief Complaint Chief complaint: SEPSIS,HYPOVOLEMIA,DEHYDRATION,CONCERN FOR EMPHYSE History of Present Illness Narrative: Most of the history that I have obtained is from review of the electronic medical record as well as review of his outside records from his last hospitalization at [facility] as is difficult to get a full and complete history from the patient as he is a poor historian. The patient is a 53-year-old male with an extensive past medical history including a CVA with left-sided deficits, neurogenic bladder status post suprap
[2023-11-04 16:07] LABS: Glucose Point of Care 309 mg/dl (65-105)
[2023-11-04 16:28] LABS: Sodium 120 mmol/L (137-145)
[2023-11-04] MEDS: SODIUM BICARBONATE TAB 325 MG TABLET PO (18:41)
[2023-11-04 20:09] LABS: Sodium 119 mmol/L (137-145)
[2023-11-04 20:13] LABS: Glucose Point of Care 323 mg/dl (65-105)
[2023-11-04 20:25] LABS: Eosinophil Urine None Seen % (None Seen); Urine Eos QC 2nd Tech Confirmed
[2023-11-04] MEDS: INSULIN GLARGINE (*BKC) 100 UNITS/ML 20 UNITS SUB-Q (20:36)
[2023-11-04 20:59] LABS: Glucose Point of Care 271 mg/dl (65-105)
[2023-11-04 20:59] LABS: Glucose Point of Care 266 mg/dl (65-105)
[2023-11-05] VITALS (24 sets, daily range): BP systolic 103–135; BP diastolic 44–65; PULSE 97–114; RESP 14–22; TEMP 36.1–36.8; O2SAT 89–99
[2023-11-05 00:49] LABS: Sodium 121 mmol/L (137-145)
[2023-11-05 04:15] LABS: Hematocrit 32.3 % (42.0-52.0); Hemoglobin 11.1 g/dL (14.0-18.0); Immature Platelet Fraction Pct 8.6 % (0.9-11.2); Mean Corpuscular HGB Conc 34.4 g/dl (32-36); Mean Corpuscular Hemoglobin 30.7 pg (26-34); Mean Corpuscular Volume 89.5 fl (80-100); Mean Platelet Volume 10.6 fl (7.4-10.4); Red Blood Count 3.61 M/mm3 (4.6-6.20); Red Cell Distribution Width 15.8 % (11.5-14.5); White Blood Count 4.9 K/mm3 (4.5-10.0)
[2023-11-05 04:27] LABS: Alanine Aminotransferase 20 U/L (6-50); Albumin Level 2.4 g/dL (3.5-5.1); Alkaline Phosphatase 74 U/L (38-126); Anion Gap 9 mmol/L (4-12); Aspartate Amino Transferase 27 U/L (17-59); Bilirubin,Total 3.6 mg/dL (0.2-1.3); Blood Urea Nitrogen 52 mg/dL (9-20); Calcium 7.5 mg/dL (8.4-10.2); Carbon Dioxide 15 mmol/L (22-30); Chloride 97 mmol/L (98-107); Estimated CRCL calculation 32 ml/min; Estimated Glomerular Filt Rate 17; Glucose 272 mg/dL (65-110); Potassium 3.4 mmol/L (3.4-5.0); Sodium 121 mmol/L (137-145)
[2023-11-05 04:47] LABS: Platelet Count Result 25 k/mm3 (150-375)
[2023-11-05 04:52] LABS: Band Neutrophils Percent 6 % (0-6); Eosinophils Absolute Manual 0.09 K/mm3 (0.02-0.50); Eosinophils Percent Manual 2 % (0-4); Lymphocytes Absolute Manual 0.39 K/mm3 (1.1-4.5); Lymphocytes Percent Manual 8 % (18-44); Monocytes Absolute Manual 0.44 K/mm3 (0.1-0.90); Monocytes Percent Manual 9 % (3-9); Neutrophils Absolute Manual 3.96 K/mm3 (1.3-6.7); Neutrophils Percent Manual 75 % (46-73); Platelet Estimate Decreased (Adequate); Total Cells Counted 100
[2023-11-05 04:54] LABS: Crenated RBC 1+; Schistocytes None Seen; Toxic Granulation Present
[2023-11-05] MEDS: oxyCODONE HCL (*CRX) 5 MG TAB IR 10 MG PO ×3 (05:20→15:15)
[2023-11-05] MEDS: SODIUM CHLORIDE 0.9% IV 1,000 ML 100 ML IV CONT ×2 (05:21→16:26)
[2023-11-05] MEDS: LEVOTHYROXINE SODIUM 50 MCG TABLET PO (06:15)
[2023-11-05 07:28] LABS: Levetiracetam Keppra 19.8 mcg/mL (6.0-46.0)
[2023-11-05 07:43] LABS: Glucose Point of Care 277 mg/dl (65-105)
[2023-11-05] MEDS: MEROPENEM 1 GM/NS 100 ML 1 GM/100 ML BAG IVPB ×2 (08:18→20:13)
[2023-11-05] MEDS: TOLTERODINE TARTRATE 2 MG TABLET PO ×2 (08:20→16:27)
[2023-11-05] MEDS: MAGNESIUM OXIDE 200 MG TABLET PO (08:20)
[2023-11-05] MEDS: MIDODRINE HCL 2.5 MG TABLET 5 MG PO ×3 (08:21→16:27)
[2023-11-05] MEDS: SERTRALINE HCL 50 MG TABLET PO (08:21)
[2023-11-05] MEDS: levETIRAcetam 500 MG TABLET PO ×2 (08:22→16:27)
[2023-11-05] MEDS: FOLIC ACID 1 MG TABLET PO (08:22)
[2023-11-05] MEDS: FERROUS SULFATE 325 MG TABLET DR PO (08:22)
[2023-11-05] MEDS: PANTOPRAZOLE 40 MG TABLET PO (08:22)
[2023-11-05] MEDS: INSULIN ASPART (*BKC) 100 UNITS/ML SUB-Q ×3 (08:24→16:24)
[2023-11-05] MEDS: INSULIN ASPART (*BKC) 100 UNITS/ML 10 UNITS SUB-Q ×3 (08:24→16:24)
[2023-11-05] MEDS: SODIUM CHLORIDE 0.9% IV 250 ML 30 ML IV CONT (08:31)
[2023-11-05] MEDS: SODIUM BICARBONATE TAB 650 MG TABLET PO ×2 (08:36→16:27)
[2023-11-05] MEDS: SODIUM BICARBONATE 8.4% 50 MEQ/50 ML SYRINGE IV PUSH (08:36)
[2023-11-05 08:37] LABS: Sodium 121 mmol/L (137-145)
--- NOTE | 2023-11-05 10:33 | PM.PNNEP ---
Progress Note: A&P Assessment and Plan (1) TOI (acute kidney injury): Code(s): N17.9 - Acute kidney failure, unspecified Status: Acute Assessment and Plan: normal creatinine in July 2023 creatinine 2.2mg/dl on admission given history and testing to date, suspect ATN from sepsis/infection better urine output noted since admission and with suprapubic catheter exchange renal ultrasound noted admission CT imaging noted as well acidosis related to TOI/ARF and lactic acidosis -- giving oral sodium bicarbonate to compensate remains at risk for [employer]/dialysis follow trend of repeat labs and UOP (2) Sepsis: Code(s): A41.9 - Sepsis, unspecified organism Status: Acute Assessment and Plan: presumably due t0 emphysematoous pyelonephritis based on admission imaging lactic acidosis on admission but better s/p IVF resuscitation blood culture with Klebsiella + Proteus; urine culture with GNB on IV antibiotics follow trend of hemodynamics continue supportive therapy (3) Hyponatremia: Code(s): E87.1 - Hypo-osmolality and hyponatremia Status: Acute Assessment and Plan: acute sodium 135mmol/L on July 2023 presumably due to a combo of volume depletion and infection/sepsis cannot discount a component related to hyperglycemia and liver cirrhosis slow improvement noted at this time despite with IVF resuscitation continue IVF support for now follow trend of sodium (4) Emphysematous pyelonephritis: Code(s): N12 - Tubulo-interstitial nephritis, not specified as acute or chronic Status: Acute Assessment and Plan: as noted by admission imaging see #2 (5) Kidney hematoma without rupture of capsule, without open wound into cavity: Code(s): S37.019A - Minor contusion of unspecified kidney, initial encounter Status: Acute Assessment and Plan: confirmed by renal ultrasound probably due to infection in conjunction with thrombocytopenia platelet transfusion per protocol Urology following (6) Suprapubic catheter: Code(s): Z93.59 - Other cystostomy status Status: Chronic Assessment and Plan: in place secondary to neurogenic bladder has since been changed out since admission Urology following (7) Diabetes: Code(s): E11.9 - Type 2 diabetes mellitus without complications Status: Acute Assessment and Plan: follow accu-cheks glycemic control per hospitalists Will continue to follow. Subjective Date/time seen: 11/05/23 10:33 Interval history: Follow-up for acute kidney injury/acute renal failure and acute hyponatremia. No apparent distress voiced at the time of my visit; better urine output noted despite rising creatinine; sodium level seems to be slowly improving as well; on oral sodium bicarbonate to compensate for acidosis. Exam Narrative: General: large Cacuasian male in NAD Heart: tachycardic, normal S1 and S2; no rub Lungs: clear to auscultation Abdomen: soft, nontender, nondistended, positive bowel sounds; SP catheter noted Extremities: no cyanosis or clubbing; trace edema Skin: warm and dry Objective Data Vital Signs Vital Signs: Vital Signs Temp Pulse Resp BP Pulse Ox O2 Del Method 11/05/23 10:09 97.7 F 98 20 109/54 L 94 11/05/23 08:00 101 H Room Air 11/05/23 08:00 101 H 11/05/23 07:54 97.2 F L 100 22 H 103/47 L 99 11/05/23 06:00 102 H 11/05/23 04:00 105 H 11/04/23 21:15 94 Room Air 11/05/23 04:00 Room Air 11/05/23 03:48 97.9 F 107 H 18 135/65 93 11/05/23 02:00 105 H 11/05/23 00:00 114 H 11/05/23 00:00 Room Air 11/04/23 23:42 97.9 F 111 H 16 125/51 L 93 11/04/23 22:00 112 H 11/04/23 20:00 120 H 11/04/23 20:00 Room Air 11/04/23 20:22 98.5 F 122 H 20 119/58 L 94 11/04/23 18:00 115 H Intake/Output Intake/O
--- NOTE | 2023-11-05 10:33 | P.PNNP_ITS ---
Progress Note: A&P Assessment and Plan (1) TOI (acute kidney injury): Code(s): N17.9 - Acute kidney failure, unspecified Status: Acute Assessment and Plan: * normal creatinine in July 2023 * creatinine 2.2mg/dl on admission * given history and testing to date, suspect ATN from sepsis/infection * better urine output noted since admission and with suprapubic catheter exchange * renal ultrasound noted * admission CT imaging noted as well * acidosis related to TOI/ARF and lactic acidosis -- giving oral sodium bicarbonate to compensate * remains at risk for [employer]/dialysis * follow trend of repeat labs and UOP (2) Sepsis: Code(s): A41.9 - Sepsis, unspecified organism Status: Acute Assessment and Plan: * presumably due t0 emphysematoous pyelonephritis based on admission imaging * lactic acidosis on admission but better s/p IVF resuscitation * blood culture with Klebsiella + Proteus; urine culture with GNB * on IV antibiotics * follow trend of hemodynamics * continue supportive therapy (3) Hyponatremia: Code(s): E87.1 - Hypo-osmolality and hyponatremia Status: Acute Assessment and Plan: * acute * sodium 135mmol/L on July 2023 * presumably due to a combo of volume depletion and infection/sepsis * cannot discount a component related to hyperglycemia and liver cirrhosis * slow improvement noted at this time despite with IVF resuscitation * continue IVF support for now * follow trend of sodium (4) Emphysematous pyelonephritis: Code(s): N12 - Tubulo-interstitial nephritis, not specified as acute or chronic Status: Acute Assessment and Plan: * as noted by admission imaging * see #2 (5) Kidney hematoma without rupture of capsule, without open wound into cavity: Code(s): S37.019A - Minor contusion of unspecified kidney, initial encounter Status: Acute Assessment and Plan: * confirmed by renal ultrasound * probably due to infection in conjunction with thrombocytopenia * platelet transfusion per protocol * Urology following (6) Suprapubic catheter: Code(s): Z93.59 - Other cystostomy status Status: Chronic Assessment and Plan: * in place secondary to neurogenic bladder * has since been changed out since admission * Urology following (7) Diabetes: Code(s): E11.9 - Type 2 diabetes mellitus without complications Status: Acute Assessment and Plan: * follow accu-cheks * glycemic control per hospitalists Will continue to follow. Subjective Date/time seen: 11/05/23 10:33 Interval history: Follow-up for acute kidney injury/acute renal failure and acute hyponatremia. No apparent distress voiced at the time of my visit; better urine output noted despite rising creatinine; sodium level seems to be slowly improving as well; on oral sodium bicarbonate to compensate for acidosis. Exam Narrative: General: large Cacuasian male in NAD Heart: tachycardic, normal S1 and S2; no rub Lungs: clear to auscultation Abdomen: soft, nontender, nondistended, positive bowel sounds; SP catheter noted Extremities: no cyanosis or clubbing; trace edema Skin: warm and dry Objective Data Vital Signs Vital Signs: Vital Signs Temp Pulse Resp BP Pulse Ox O2 Del Method 11/05/23 10:09 97.7 F 98 20 109/54 L 94 11/05/23 08:00 101 H
[2023-11-05] MEDS: HYDROcodone/acetaminophen (*CRX) 5-325 MG TABLET 1 TAB PO (11:41)
[2023-11-05 12:03] LABS: Glucose Point of Care 264 mg/dl (65-105)
--- NOTE | 2023-11-05 12:17 | WPDUROPN2 ---
Progress Note: A&P Assessment and Plan (1) Sepsis: Code(s): A41.9 - Sepsis, unspecified organism Status: Acute Assessment and Plan: Secondary to pyelonephritis as below. Being managed per primary team. Blood cultures pending. Urine culture pending but obtained after initiation of antibiotics. 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 Preliminary blood in urine cultures with Gram-negative bacilli. Continue empiric IV antibiotics and monitor clinically. Consider repeat CT if lack of improvement. No indication for acute urologic intervention at this time (3) Suprapubic catheter: Code(s): Z93.59 - Other cystostomy status Status: Chronic Assessment and Plan: SP tube removed and replaced 11/03/23. SP tube required irrigation with return of copious amounts of very purulent urine. Flush catheter prn if any issues with drainage. Discussed with patient the need for routine SP tube changes at least once/month. Will need to provide orders to nursing facility upon discharge to ensure this is being completed. (4) Kidney hematoma without rupture of capsule, without open wound into cavity: Code(s): S37.019A - Minor contusion of unspecified kidney, initial encounter Status: Acute Assessment and Plan: Subcapsular hematoma of left lower pole. Recommend repeat CT of abdomen/pelvis without contrast in 3 months to ensure resolution. (5) Nephrolithiasis: Code(s): N20.0 - Calculus of kidney Status: Acute Assessment and Plan: Has very large left renal pelvis stone. Will need to follow-up with his primary urologist at [facility] for management Subjective Subjective Date/Time Seen: 11/05/23 12:17 Interval history: Doing fair today. No acute events overnight. Complains of bladder spasms. Denies nausea, vomiting, fever, chills. No back pain or flank pain. Review of Systems Review of Systems: All systems reviewed & are unremarkable except as noted in HPI and below Exam Narrative: General: Obese, chronically ill-appearing, awake, alert, comfortable, no acute distress HEENT: Normocephalic, atraumatic, sclerae anicteric Respiratory: Normal respiratory effort, no accessory muscle use Abdomen: Obese abdomen, nondistended, soft, nontender : Cystostomy site appears healthy with no concerns for surrounding infection, SP tube in place draining laura colored urine Skin: Normal coloration, warm and dry Neurologic: No focal neuro deficits noted Psychiatric: Appropriate mood and affect, judgment and insight intact Objective Data Vital Signs Vital Signs: Vital Signs - 24 hr 11/04/23 15:25 11/04/23 14:00 11/04/23 16:00 Temperature 97.3 F L Pulse Rate 110 H 110 H 110 H Respiratory Rate 20 Blood Pressure 136/55 L Pulse Oximetry 96 Oxygen Delivery 11/04/23 16:00 11/04/23 18:00 11/04/23 20:22 Temperature 98.5 F Pulse Rate 115 H 122 H Respiratory Rate 20 Blood Pressure 119/58 L Pulse Oximetry 94 Oxygen Delivery Room Air 11/04/23 20:00 11/04/23 20:00 11/04/23 22:00 Temperature Pulse Rate 120 H 112 H Respiratory Rate Blood Pressure Pulse Oximetry Oxygen Delivery Room Air 11/04/23 23:42 11/05/23 00:00 11/05/23 00:00 Temperature 97.9 F Pulse Rate 111 H 114 H Respiratory Rate 16 Blood Pressure 125/51 L Pulse Oximetry 93 Oxygen Delivery Room Air 11/05/23 02:00 11/05/23 03:48 11/05/23 04:00 Temperature 97.9 F Pulse Rate 105 H 107 H Respiratory Rate 18 Blood Pressure 135/65 Pulse Oximetry 93 Oxygen Delivery Room Air 11/04/23 21:15 11/05/23 04:00 11/05/23 06:00 Temperature Pulse Rate 105 H 102 H Respiratory Rate Blood Pressure Pulse Oximetry 94 Oxygen Delivery Room Air 11/05/23 07:54 11/05/23
[2023-11-05 12:25] LABS: Sodium 121 mmol/L (137-145)
[2023-11-05 16:46] LABS: Glucose Point of Care 229 mg/dl (65-105)
--- NOTE | 2023-11-05 17:58 | PM.IMPN ---
Progress Note: A&P Assessment and Plan (1) Septic shock: Code(s): A41.9 - Sepsis, unspecified organism; R65.21 - Severe sepsis with septic shock Status: Acute Assessment and Plan: Patient presents with n/v and diarrhea. CT Ch/A/P showing enlarged left kidney with possible subcapsular hematoma and focal air either within the left kidney parenchyma vs within a potential subcapsular collection. Additional air seen in the left ureter and left renal pelvis. 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 Lactic at 4.2 and has trended to normal after appropriate fluid resuscitation (2L fluids and started on 150mL/hr NS) Llevaquin and Zosyn once each in ED and started on Rocephin and Vanco BCx growing Proteus Mirabilis and Klebsiella pneumonia. UCx growing Gram negative bacilli Urology consulted and appreciate their input; SP has been changed out Vanco stopped and Rocephin changed to meropenem. -continue abx [facility]. Discussed wit Dr Moody on 11/03 Old records requested. 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 (3) Kidney hematoma without rupture of capsule, without open wound into cavity: Code(s): S37.019A - Minor contusion of unspecified kidney, initial encounter Status: Acute Assessment and Plan: Patient with possible capsular hematoma of left kidney by CT Renal US confirms left renal capsular hematoma. Due to current infection and related thrombocytopenia. Platelet transfusion was held yesterday due to planned transfer Plt count better at 25K but will transfuse since hematoma confirmed. Continue abx Urology following (4) Thrombocytopenia: Code(s): D69.6 - Thrombocytopenia, unspecified Status: Acute Assessment and Plan: Plt count 30K on admisison and dropped to 21K. Splenomegaly noted by CT scan. Abd US showing cirrhosis so probably related to sequestration. Hgb dropping from 14 to 10.8 (but could be related to IV fluids). Plt count 25K today. Platelet transfusion was held yesterday due to planned transfer but will transfuse today (5) Hypovolemia: Code(s): E86.1 - Hypovolemia Status: Acute Assessment and Plan: Better. positive fluid balance. Monitor cmp Stop IV fluids (6) Hyponatremia: Code(s): E87.1 - Hypo-osmolality and hyponatremia Status: Acute Assessment and Plan: Sodium 118 on admission and dropped to 116. He was fluid resuscitated for sepsis and sodium remained stable Some of this could be related to hyperglycemia and/or SIADH and/or cirrhosis. Not fluid overloaded. We did discover that he has chronic issues with hyponatremia Urine Na 33 but other studies pending. Nephrology consulted and discussed. Na 121 today. Positive fluid balance Stop IV fluids. Continue to correct hyperglycemia (7) Renal failure: Code(s): N19 - Unspecified kidney failure Status: Acute Assessment and Plan: Cr 2.2 on admission but has climbed to 3.8 today despite IV fluids. probably a componenet of ATN He has normal renal function at baseline UOP 1050mL yesterday but up to 1350mL so far today. Bicarb low at 15 still. Potassium normal. Does not appear to be fluid overloaded. Continue oral bicarb and repeat IV bicarb once. Back down on fluids now that BP is better. Renal US showing no hydronephrosis. Nephrology following Monitor UOP, electrolytes and renal fxn (8) T2DM (type 2 diabetes mellitus): Code(s): E11.9 - Type 2 diabetes mellitus without complications Status: Acute Assessment and Plan: HgbA1c 14. The patient's blood glucose was reviewed on 11/04 Glucose better but remains poorly controlled. Continue AccuCheks covering with sliding scale. Hypogl
[2023-11-05 20:14] LABS: Glucose Point of Care 110 mg/dl (65-105)
[2023-11-05] MEDS: INSULIN GLARGINE (*BKC) 100 UNITS/ML 25 UNITS SUB-Q (20:14)
[2023-11-06] VITALS (16 sets, daily range): BP systolic 124–132; BP diastolic 47–66; PULSE 96–108; RESP 16–24; TEMP 36.2–36.7; O2SAT 91–97
[2023-11-06] MEDS: oxyCODONE HCL (*CRX) 5 MG TAB IR 10 MG PO ×2 (04:15→10:08)
[2023-11-06 05:15] LABS: Hematocrit 31.7 % (42.0-52.0); Hemoglobin 10.5 g/dL (14.0-18.0); Immature Platelet Fraction Pct 6.7 % (0.9-11.2); Mean Corpuscular HGB Conc 33.1 g/dl (32-36); Mean Corpuscular Hemoglobin 30.1 pg (26-34); Mean Corpuscular Volume 90.8 fl (80-100); Mean Platelet Volume 11.4 fl (7.4-10.4); Platelet Count Result 44 k/mm3 (150-375); Red Blood Count 3.49 M/mm3 (4.6-6.20); Red Cell Distribution Width 16.3 % (11.5-14.5); White Blood Count 8.1 K/mm3 (4.5-10.0)
[2023-11-06 05:22] LABS: Iron 23 ug/dL (49-181)
[2023-11-06 05:24] LABS: Alanine Aminotransferase 17 U/L (6-50); Albumin Level 2.6 g/dL (3.5-5.1); Alkaline Phosphatase 84 U/L (38-126); Anion Gap 10 mmol/L (4-12); Aspartate Amino Transferase 31 U/L (17-59); Bilirubin,Total 3.6 mg/dL (0.2-1.3); Blood Urea Nitrogen 62 mg/dL (9-20); Calcium 7.6 mg/dL (8.4-10.2); Carbon Dioxide 14 mmol/L (22-30); Chloride 99 mmol/L (98-107); Estimated CRCL calculation 32 ml/min; Estimated Glomerular Filt Rate 16; Glucose 164 mg/dL (65-110); Magnesium 2.2 mg/dL (1.6-2.3); Phosphorus 3.5 mg/dL (2.5-4.5); Potassium 3.6 mmol/L (3.4-5.0); Sodium 123 mmol/L (137-145)
[2023-11-06 05:32] LABS: Percent Iron Saturation 13 % (20-50)
[2023-11-06 05:39] LABS: Band Neutrophils Percent 7 % (0-6); Eosinophils Absolute Manual 0.08 K/mm3 (0.02-0.50); Eosinophils Percent Manual 1 % (0-4); Lymphocytes Absolute Manual 0.64 K/mm3 (1.1-4.5); Monocytes Absolute Manual 0.64 K/mm3 (0.1-0.90); Monocytes Percent Manual 8 % (3-9); Neutrophils Absolute Manual 6.72 K/mm3 (1.3-6.7); Neutrophils Percent Manual 76 % (46-73); Platelet Estimate Decreased (Adequate); Total Cells Counted 100
[2023-11-06 05:40] LABS: Crenated RBC 1+; Schistocytes None Seen
[2023-11-06 06:33] LABS: Folic Acid > 20.0 ng/mL (2.76->20)
[2023-11-06] MEDS: MEROPENEM 1 GM/NS 100 ML 1 GM/100 ML BAG IVPB ×2 (09:16→20:34)
--- NOTE | 2023-11-06 09:17 | P.PNNP_ITS ---
Progress Note: A&P Assessment and Plan (1) TOI (acute kidney injury): Code(s): N17.9 - Acute kidney failure, unspecified Status: Acute Assessment and Plan: * normal creatinine in July 2023 * creatinine 2.2mg/dl on admission * He has Klebsiella urosepsis. * renal ultrasound Shows subcapsular hematoma of the left kidney. No hydronephrosis. * admission CT imaging shows the subcapsular hematoma as well. * urine sodium is 33. No urine creatinine done. * CPK okay. * Most likely this is ATN from Klebsiella sepsis. Subcapsular hematoma may be playing a role as well. * acidosis related to TOI/ARF and formerly high lactic acid level. * Bicarbonate is a little bit lower. He is NPO. If he does not pass his swallowing study IV fluids to maintain hydration and some bicarb in the fluid to help his CO2. * remains at risk for SENIOR INFORMATION SYSTEMS ARCHITECT/dialysis . We discussed this. He is on only 2L of oxygen. He is not short of breath. He does not have much swelling. His creatinine is a little bit higher but not so high that he would need dialysis today. His urine output is improved and he is getting antibiotics and so hopefully will turn around soon. * follow trend of repeat labs and UOP (2) Sepsis: Code(s): A41.9 - Sepsis, unspecified organism Status: Acute Assessment and Plan: * presumably due to emphysematoous pyelonephritis based on admission imaging * lactic acidosis on admission but better s/p IVF resuscitation * blood culture with Klebsiella + Proteus; urine culture with GNB * on IV antibiotics * follow trend of hemodynamics * Urology is on the case and is managing the emphysematous pyelonephritis and whether or not intervention/ drainage would be needed.. * continue supportive therapy (3) Hyponatremia: Code(s): E87.1 - Hypo-osmolality and hyponatremia Status: Acute Assessment and Plan: * acute * sodium 135mmol/L on July 2023 * presumably due to a combo of volume depletion , TOI, and infection/sepsis * probably also a component related to hyperglycemia and liver cirrhosis * sodium level is a little higher at 123 * continue IVF support for now * Check another sodium later today. (4) Emphysematous pyelonephritis: Code(s): N12 - Tubulo-interstitial nephritis, not specified as acute or chronic Status: Acute Assessment and Plan: * as noted by admission imaging * Management per Urology. (5) Kidney hematoma without rupture of capsule, without open wound into cavity: Code(s): S37.019A - Minor contusion of unspecified kidney, initial encounter Status: Acute Assessment and Plan: * confirmed by renal ultrasound * probably due to infection in conjunction with thrombocytopenia * platelet transfusion per protocol * Urology following (6) Suprapubic catheter: Code(s): Z93.59 - Other cystostomy status Status: Chronic Assessment and Plan: * in place secondary to neurogenic bladder * has since been changed out since admission * Urology following (7) Diabetes: Code(s): E11.9 - Type 2 diabetes mellitus without complications Status: Acute Assessment and Plan: * glycemic control per hospitalists Subjective Date/time seen: 11/06/23 09:17 Interval history: Alan is feeling a little bit better. He denies any shortness of breath. He is not nauseated. I talked with nursing and they said he had some trouble swallowing last night so he is getting a swallow evaluation today and is n.
--- NOTE | 2023-11-06 09:17 | PM.PNNEP ---
Progress Note: A&P Assessment and Plan (1) TOI (acute kidney injury): Code(s): N17.9 - Acute kidney failure, unspecified Status: Acute Assessment and Plan: normal creatinine in July 2023 creatinine 2.2mg/dl on admission He has Klebsiella urosepsis. renal ultrasound Shows subcapsular hematoma of the left kidney. No hydronephrosis. admission CT imaging shows the subcapsular hematoma as well. urine sodium is 33. No urine creatinine done. CPK okay. Most likely this is ATN from Klebsiella sepsis. Subcapsular hematoma may be playing a role as well. acidosis related to TOI/ARF and formerly high lactic acid level. Bicarbonate is a little bit lower. He is NPO. If he does not pass his swallowing study IV fluids to maintain hydration and some bicarb in the fluid to help his CO2. remains at risk for ROLL EDGE STITCHER HAND/dialysis . We discussed this. He is on only 2L of oxygen. He is not short of breath. He does not have much swelling. His creatinine is a little bit higher but not so high that he would need dialysis today. His urine output is improved and he is getting antibiotics and so hopefully will turn around soon. follow trend of repeat labs and UOP (2) Sepsis: Code(s): A41.9 - Sepsis, unspecified organism Status: Acute Assessment and Plan: presumably due to emphysematoous pyelonephritis based on admission imaging lactic acidosis on admission but better s/p IVF resuscitation blood culture with Klebsiella + Proteus; urine culture with GNB on IV antibiotics follow trend of hemodynamics Urology is on the case and is managing the emphysematous pyelonephritis and whether or not intervention/ drainage would be needed.. continue supportive therapy (3) Hyponatremia: Code(s): E87.1 - Hypo-osmolality and hyponatremia Status: Acute Assessment and Plan: acute sodium 135mmol/L on July 2023 presumably due to a combo of volume depletion , TOI, and infection/sepsis probably also a component related to hyperglycemia and liver cirrhosis sodium level is a little higher at 123 continue IVF support for now Check another sodium later today. (4) Emphysematous pyelonephritis: Code(s): N12 - Tubulo-interstitial nephritis, not specified as acute or chronic Status: Acute Assessment and Plan: as noted by admission imaging Management per Urology. (5) Kidney hematoma without rupture of capsule, without open wound into cavity: Code(s): S37.019A - Minor contusion of unspecified kidney, initial encounter Status: Acute Assessment and Plan: confirmed by renal ultrasound probably due to infection in conjunction with thrombocytopenia platelet transfusion per protocol Urology following (6) Suprapubic catheter: Code(s): Z93.59 - Other cystostomy status Status: Chronic Assessment and Plan: in place secondary to neurogenic bladder has since been changed out since admission Urology following (7) Diabetes: Code(s): E11.9 - Type 2 diabetes mellitus without complications Status: Acute Assessment and Plan: glycemic control per hospitalists Subjective Date/time seen: 11/06/23 09:17 Interval history: Alan is feeling a little bit better. He denies any shortness of breath. He is not nauseated. I talked with nursing and they said he had some trouble swallowing last night so he is getting a swallow evaluation today and is n.p.o. until that test is done. Exam Narrative: General: large Cacuasian male in NAD Heart: tachycardic, normal S1 and S2; no rub or gallop Lungs: clear to auscultation Abdomen: soft, nontender, nondistended, positive bowel sounds; SP catheter noted Extremities: no cyanosis or clubbing; trace edema Skin: No rash Objective Data Vital Signs Vital Signs: Vital Signs - 24 hr 11/05/23 10:00 11/05/23 11:29 11/05/23 11:36 Te
[2023-11-06 09:35] LABS: Glucose Point of Care 182 mg/dl (65-105)
[2023-11-06] MEDS: SODIUM BICARBONATE TAB 650 MG TABLET 1300 MG PO ×2 (10:07→17:46)
[2023-11-06] MEDS: TOLTERODINE TARTRATE 2 MG TABLET PO ×2 (10:07→17:46)
[2023-11-06] MEDS: MAGNESIUM OXIDE 200 MG TABLET PO (10:07)
[2023-11-06] MEDS: SERTRALINE HCL 50 MG TABLET PO (10:09)
[2023-11-06] MEDS: MIDODRINE HCL 2.5 MG TABLET 5 MG PO ×3 (10:09→17:46)
[2023-11-06] MEDS: FOLIC ACID 1 MG TABLET PO (10:09)
[2023-11-06] MEDS: PANTOPRAZOLE 40 MG TABLET PO (10:09)
[2023-11-06] MEDS: levETIRAcetam 500 MG TABLET PO ×2 (10:10→17:47)
--- NOTE | 2023-11-06 11:00 | PCSTNOTE ---
Bedside swallowing evaluation completed. Patient seen bedside with head of bed elevated, unable to achieve full upright position due to hip pain. Cursory oral peripheral examination reveals mild left sided labial and facial weakness. Lingual control, strength, and range of motion within functional limits. Trials of thin liquid by straw in uncontrolled amounts were within functional limits, no signs of aspiration observed. Trials of pureed food by spoon within normal limits, no difficulty observed. Trials of solid food (bite of sandwich) revealed extra time required for chewing and sips of liquid needed due to dryness in oral cavity. Recommendations: soft and bite sized diet, thin liquids (straws ok), give pills in applesauce if helpful to patient, no further speech therapy. Swallowing precaution recommendations: upright positioning during meals and for 30 minutes afterwards as patient able to tolerate, small bites and sips, and frequent observation by nursing staff. Physician notified. Thank you for the referral of this patient.
[2023-11-06] MEDS: FERROUS SULFATE 325 MG TABLET DR PO (12:26)
--- NOTE | 2023-11-06 13:10 | PM.IMPN ---
Progress Note: A&P Assessment and Plan (1) Septic shock: Code(s): A41.9 - Sepsis, unspecified organism; R65.21 - Severe sepsis with septic shock Status: Acute Assessment and Plan: Patient presents with n/v and diarrhea. CT Ch/A/P showing enlarged left kidney with possible subcapsular hematoma and focal air either within the left kidney parenchyma vs within a potential subcapsular collection. Additional air seen in the left ureter and left renal pelvis. 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 Lactic at 4.2 and now normal after fluid resuscitation (2L then 150mL/hr NS) Levaquin and Zosyn once each in ED and then started on Rocephin and Vanco BCx growing Proteus Mirabilis and Klebsiella pneumonia but relatively pansenstive. UCx growing Klebsiella pneumonia with multidrug resistance. Urology consulted and appreciate their input; SP has been changed out Vanco stopped and Rocephin changed to meropenem 11/03. Repeat BCx pending Continue meropenem [facility]. Discussed wit Dr Moody on 11/03 (2) Emphysematous pyelonephritis: Code(s): N12 - Tubulo-interstitial nephritis, not specified as acute or chronic Status: Acute Assessment and Plan: As above. (3) Kidney hematoma without rupture of capsule, without open wound into cavity: Code(s): S37.019A - Minor contusion of unspecified kidney, initial encounter Status: Acute Assessment and Plan: Patient with possible capsular hematoma of left kidney by CT Renal US confirms left renal capsular hematoma. Due to current infection and related thrombocytopenia. Platelet transfusions given due to plt count 21K and capsular hematoma. Plt count better at 44K. Continue abx Urology following (4) Thrombocytopenia: Code(s): D69.6 - Thrombocytopenia, unspecified Status: Acute Assessment and Plan: Plt count 30K on admisison and dropped to 21K. Splenomegaly noted by CT scan. Abd US showing cirrhosis so probably related to sequestration. Hgb dropping from 14 to 10.5 (but could be related to IV fluids). Plt count 44K today since the transfusion. Follow and transfuse as needed. (5) Hypovolemia: Code(s): E86.1 - Hypovolemia Status: Acute Assessment and Plan: Better. positive fluid balance. Monitor cmp (6) Hyponatremia: Code(s): E87.1 - Hypo-osmolality and hyponatremia Status: Acute Assessment and Plan: Sodium 118 on admission and dropped to 116. He was fluid resuscitated for sepsis and sodium remained stable Some of this could be related to hyperglycemia and/or SIADH and/or cirrhosis. Not fluid overloaded. Sodium 135 in July Urine Na 33 Nephrology consulted and appreciate their input Na 123 today. Positive fluid balance at 10L Continue to correct hyperglycemia. Add NaCl tabs if sodium does not continue to correct (7) Renal failure: Code(s): N19 - Unspecified kidney failure Status: Acute Assessment and Plan: Cr 2.2 on admission but has climbed to 3.9 today despite IV fluids. probably a component of ATN He has normal renal function at baseline Renal US showing no hydronephrosis. UOP 1350mL yesterday but only 500mL so far today. Bicarb low at 14 still. Potassium normal. Does not appear to be fluid overloaded. Currently off IV fluids Continue oral bicarb Nephrology following Monitor UOP, electrolytes and renal fxn (8) T2DM (type 2 diabetes mellitus): Code(s): E11.9 - Type 2 diabetes mellitus without complications Status: Acute Assessment and Plan: HgbA1c 14. The patient's blood glucose was reviewed on 11/05 Glucose better controlled. Continue AccuCheks covering with sliding scale. Hypoglycemia protocol available as needed. Continue diabetic diet Continue lantus (9) Suprapubic catheter: Code(s): Z
[2023-11-06 15:49] LABS: Glucose Point of Care 197 mg/dl (65-105)
[2023-11-06 18:47] LABS: Glucose Point of Care 198 mg/dl (65-105)
[2023-11-06 20:11] LABS: Glucose Point of Care 204 mg/dl (65-105)
[2023-11-06 20:31] LABS: Anion Gap 7 mmol/L (4-12); Blood Urea Nitrogen 68 mg/dL (9-20); Calcium 7.7 mg/dL (8.4-10.2); Carbon Dioxide 18 mmol/L (22-30); Chloride 98 mmol/L (98-107); Estimated CRCL calculation 27 ml/min; Estimated Glomerular Filt Rate 14; Glucose 209 mg/dL (65-110); Potassium 3.7 mmol/L (3.4-5.0); Sodium 123 mmol/L (137-145)
[2023-11-06] MEDS: HYDROcodone/acetaminophen (*CRX) 5-325 MG TABLET 1 TAB PO (20:33)
[2023-11-06] MEDS: MELATONIN 3 MG TABLET PO (20:34)
[2023-11-06] MEDS: INSULIN GLARGINE (*BKC) 100 UNITS/ML 25 UNITS SUB-Q (20:38)
[2023-11-07] VITALS (16 sets, daily range): BP systolic 107–124; BP diastolic 44–55; PULSE 71–102; RESP 18–22; TEMP 35.9–36.8; O2SAT 92–96
[2023-11-07] MEDS: oxyCODONE HCL (*CRX) 5 MG TAB IR 10 MG PO ×4 (01:32→18:03)
[2023-11-07 04:32] LABS: Basophils Percent Auto 0.5 % (0.2-1.2); Eosinophils Absolute Auto 0.1 K/mm3 (0-0.3); Eosinophils Percent Auto 1.4 % (0-4.4); Hematocrit 31.5 % (42.0-52.0); Hemoglobin 10.3 g/dL (14.0-18.0); Immature Granulocyte Absolute 0.21 K/mm3 (0.00-0.031); Immature Granulocyte Percent A 2.4 % (0-0.5); Immature Platelet Fraction Pct 7.5 % (0.9-11.2); Lymphocytes Absolute Auto 0.94 K/mm3 (0.9-3.2); Lymphocytes Percent Auto 10.6 % (18.3-44.2); Mean Corpuscular HGB Conc 32.7 g/dl (32-36); Mean Corpuscular Hemoglobin 29.9 pg (26-34); Mean Corpuscular Volume 91.3 fl (80-100); Mean Platelet Volume 11.2 fl (7.4-10.4); Monocytes Absolute Auto 0.7 K/mm3 (0.1-0.6); Monocytes Percent Auto 7.9 % (2.6-8.5); Neutrophils Absolute Auto 6.9 K/mm3 (1.3-6.7); Neutrophils Percent Auto 77.2 % (45.5-73.1); Platelet Count Result 52 k/mm3 (150-375); Red Blood Count 3.45 M/mm3 (4.6-6.20); Red Cell Distribution Width 16.2 % (11.5-14.5); White Blood Count 8.9 K/mm3 (4.5-10.0)
[2023-11-07 04:45] LABS: Alanine Aminotransferase 17 U/L (6-50); Albumin Level 2.5 g/dL (3.5-5.1); Alkaline Phosphatase 104 U/L (38-126); Anion Gap 6 mmol/L (4-12); Aspartate Amino Transferase 29 U/L (17-59); Blood Urea Nitrogen 69 mg/dL (9-20); Calcium 7.7 mg/dL (8.4-10.2); Carbon Dioxide 20 mmol/L (22-30); Chloride 97 mmol/L (98-107); Estimated CRCL calculation 27 ml/min; Estimated Glomerular Filt Rate 14; Glucose 217 mg/dL (65-110); Phosphorus 4.6 mg/dL (2.5-4.5); Potassium 3.7 mmol/L (3.4-5.0); Sodium 123 mmol/L (137-145)
[2023-11-07 05:06] LABS: Anisocytosis 1+; Burr Cells 1+; Large Platelets Present; Microcytosis 1+ (NORMAL); Platelet Clumps Present; Platelet Estimate Decreased (Adequate); Schistocytes None Seen
[2023-11-07] MEDS: LEVOTHYROXINE SODIUM 50 MCG TABLET PO (05:25)
[2023-11-07 07:56] LABS: Glucose Point of Care 180 mg/dl (65-105)
[2023-11-07] MEDS: INSULIN ASPART (*BKC) 100 UNITS/ML 10 UNITS SUB-Q ×3 (08:39→17:12)
[2023-11-07] MEDS: SERTRALINE HCL 50 MG TABLET PO (08:40)
[2023-11-07] MEDS: FERROUS SULFATE 325 MG TABLET DR PO (08:40)
[2023-11-07] MEDS: levETIRAcetam 500 MG TABLET PO ×2 (08:40→17:12)
[2023-11-07] MEDS: TOLTERODINE TARTRATE 2 MG TABLET PO ×2 (08:40→17:14)
[2023-11-07] MEDS: FOLIC ACID 1 MG TABLET PO (08:40)
[2023-11-07] MEDS: PANTOPRAZOLE 40 MG TABLET PO (08:40)
[2023-11-07] MEDS: MIDODRINE HCL 2.5 MG TABLET 5 MG PO ×3 (08:40→17:13)
[2023-11-07] MEDS: MAGNESIUM OXIDE 200 MG TABLET PO (08:40)
[2023-11-07] MEDS: MEROPENEM 1 GM/NS 100 ML 1 GM/100 ML BAG IVPB ×2 (08:41→20:40)
[2023-11-07] MEDS: SODIUM BICARBONATE TAB 650 MG TABLET 1300 MG PO ×2 (08:42→17:13)
--- NOTE | 2023-11-07 10:11 | P.PNNP_ITS ---
Progress Note: A&P Assessment and Plan (1) TOI (acute kidney injury): Code(s): N17.9 - Acute kidney failure, unspecified Status: Acute Assessment and Plan: * normal creatinine in July 2023 * creatinine 2.2mg/dl on admission . * renal ultrasound Shows subcapsular hematoma of the left kidney. No hydronephrosis. * admission CT imaging shows the subcapsular hematoma as well. * urine sodium is 33. No urine creatinine done. * CPK okay. * Most likely this is ATN from Klebsiella sepsis. Subcapsular hematoma may be playing a role as well. * remains at risk for DIRECTOR OF CONTENT AND PROGRAMMING/dialysis . We discussed this. He is on only 2L of oxygen. He is not short of breath. He does not have much swelling. His creatinine is stable today for the 1st time. Hopefully this means that he will turn around soon. His urine output is improved and he is getting antibiotics. * follow trend of repeat labs and UOP (2) Sepsis: Code(s): A41.9 - Sepsis, unspecified organism Status: Acute Assessment and Plan: * presumably due to emphysematoous pyelonephritis based on admission imaging * lactic acidosis on admission but better s/p IVF resuscitation * blood culture with Klebsiella + Proteus; urine culture with GNB * on IV Meropenem * follow trend of hemodynamics * Urology is on the case and is managing the emphysematous pyelonephritis and whether or not intervention/ drainage would be needed.. * continue supportive therapy (3) Hyponatremia: Code(s): E87.1 - Hypo-osmolality and hyponatremia Status: Acute Assessment and Plan: * sodium 135mmol/L on July 2023 * presumably due to a combo of volume depletion , TOI, and infection/sepsis * probably also a component related to hyperglycemia and liver cirrhosis * sodium level is Stable at 123. * He is on bicarbonate tablets, equivalent to sodium chloride tablets. He is not drinking very much fluid at all according to the nurse. So effectively has himself on a fluid restriction. * Will order low-dose furosemide to help clear free water. * continue IVF support for now (4) Emphysematous pyelonephritis: Code(s): N12 - Tubulo-interstitial nephritis, not specified as acute or chronic Status: Acute Assessment and Plan: * as noted by admission imaging * Management per Urology. (5) Kidney hematoma without rupture of capsule, without open wound into cavity: Code(s): S37.019A - Minor contusion of unspecified kidney, initial encounter Status: Acute Assessment and Plan: * confirmed by renal ultrasound * probably due to infection in conjunction with thrombocytopenia * platelet transfusion per protocol * Urology following (6) Suprapubic catheter: Code(s): Z93.59 - Other cystostomy status Status: Chronic Assessment and Plan: * in place secondary to neurogenic bladder * has since been changed out since admission * Urology following (7) Diabetes: Code(s): E11.9 - Type 2 diabetes mellitus without complications Status: Acute Assessment and Plan: * glycemic control per hospitalists (8) Metabolic acidosis: Code(s): E87.20 - Acidosis, unspecified Status: Acute Assessment and Plan: * acidosis related to TOI/ARF and formerly high lactic acid level. * Bicarbonate better. Subjective Date/time seen: 11/07/23 10:11 Interval history: patient seems to be more comfortable today. No nausea or vomiting. Not eating very we
--- NOTE | 2023-11-07 10:11 | PM.PNNEP ---
Progress Note: A&P Assessment and Plan (1) TOI (acute kidney injury): Code(s): N17.9 - Acute kidney failure, unspecified Status: Acute Assessment and Plan: normal creatinine in July 2023 creatinine 2.2mg/dl on admission . renal ultrasound Shows subcapsular hematoma of the left kidney. No hydronephrosis. admission CT imaging shows the subcapsular hematoma as well. urine sodium is 33. No urine creatinine done. CPK okay. Most likely this is ATN from Klebsiella sepsis. Subcapsular hematoma may be playing a role as well. remains at risk for COUNTRY PRINTER/dialysis . We discussed this. He is on only 2L of oxygen. He is not short of breath. He does not have much swelling. His creatinine is stable today for the 1st time. Hopefully this means that he will turn around soon. His urine output is improved and he is getting antibiotics. follow trend of repeat labs and UOP (2) Sepsis: Code(s): A41.9 - Sepsis, unspecified organism Status: Acute Assessment and Plan: presumably due to emphysematoous pyelonephritis based on admission imaging lactic acidosis on admission but better s/p IVF resuscitation blood culture with Klebsiella + Proteus; urine culture with GNB on IV Meropenem follow trend of hemodynamics Urology is on the case and is managing the emphysematous pyelonephritis and whether or not intervention/ drainage would be needed.. continue supportive therapy (3) Hyponatremia: Code(s): E87.1 - Hypo-osmolality and hyponatremia Status: Acute Assessment and Plan: sodium 135mmol/L on July 2023 presumably due to a combo of volume depletion , TOI, and infection/sepsis probably also a component related to hyperglycemia and liver cirrhosis sodium level is Stable at 123. He is on bicarbonate tablets, equivalent to sodium chloride tablets. He is not drinking very much fluid at all according to the nurse. So effectively has himself on a fluid restriction. Will order low-dose furosemide to help clear free water. continue IVF support for now (4) Emphysematous pyelonephritis: Code(s): N12 - Tubulo-interstitial nephritis, not specified as acute or chronic Status: Acute Assessment and Plan: as noted by admission imaging Management per Urology. (5) Kidney hematoma without rupture of capsule, without open wound into cavity: Code(s): S37.019A - Minor contusion of unspecified kidney, initial encounter Status: Acute Assessment and Plan: confirmed by renal ultrasound probably due to infection in conjunction with thrombocytopenia platelet transfusion per protocol Urology following (6) Suprapubic catheter: Code(s): Z93.59 - Other cystostomy status Status: Chronic Assessment and Plan: in place secondary to neurogenic bladder has since been changed out since admission Urology following (7) Diabetes: Code(s): E11.9 - Type 2 diabetes mellitus without complications Status: Acute Assessment and Plan: glycemic control per hospitalists (8) Metabolic acidosis: Code(s): E87.20 - Acidosis, unspecified Status: Acute Assessment and Plan: acidosis related to TOI/ARF and formerly high lactic acid level. Bicarbonate better. Subjective Date/time seen: 11/07/23 10:11 Interval history: patient seems to be more comfortable today. No nausea or vomiting. Not eating very well. Exam Narrative: General: large Cacuasian male in NAD Heart: tachycardic, normal S1 and S2; no rub or gallop Lungs: Decreased breath sounds at the bases. Abdomen: soft, nontender, nondistended, positive bowel sounds; SP catheter noted Extremities: no cyanosis or clubbing; trace edema Skin: No rash Objective Data Vital Signs Vital Signs: Vital Signs - 24 hr 11/06/23 12:00 11/06/23 12:00 11/06/23 16:00 Temperature 98.0 F Pulse R
[2023-11-07 11:45] LABS: Glucose Point of Care 198 mg/dl (65-105)
[2023-11-07] MEDS: FUROSEMIDE 20 MG TABLET PO ×2 (11:54→17:14)
--- NOTE | 2023-11-07 15:26 | PM.IMPN ---
Progress Note: A&P Assessment and Plan (1) Septic shock: Code(s): A41.9 - Sepsis, unspecified organism; R65.21 - Severe sepsis with septic shock Status: Acute Assessment and Plan: Patient presents with n/v and diarrhea. CT Ch/A/P showing enlarged left kidney with possible subcapsular hematoma and focal air either within the left kidney parenchyma vs within a potential subcapsular collection. Additional air seen in the left ureter and left renal pelvis. 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 Lactic at 4.2 and now normal after fluid resuscitation (2L then 150mL/hr NS) Levaquin and Zosyn once each in ED and then started on Rocephin and Vanco BCx growing Proteus Mirabilis and Klebsiella pneumonia but relatively pansensitive. UCx growing Klebsiella pneumonia (only 10-49K colonies) with multidrug resistance but sensitive to meropenem Urology consulted and appreciate their input; SP has been changed out Vanco stopped and Rocephin changed to meropenem 11/03. Repeat BCx NGTD Continue meropenem [facility] and [facility] agreed to accept patient in transfer. Discussed wit Dr Moody on 11/03 (2) Emphysematous pyelonephritis: Code(s): N12 - Tubulo-interstitial nephritis, not specified as acute or chronic Status: Acute Assessment and Plan: As above. (3) Kidney hematoma without rupture of capsule, without open wound into cavity: Code(s): S37.019A - Minor contusion of unspecified kidney, initial encounter Status: Acute Assessment and Plan: Patient with possible capsular hematoma of left kidney by CT Renal US confirms left renal capsular hematoma. Hematoma due to current infection and related thrombocytopenia. Platelet transfusions given due to plt count 21K and capsular hematoma. Plt count better at 52K. Continue abx Urology following (4) Thrombocytopenia: Code(s): D69.6 - Thrombocytopenia, unspecified Status: Acute Assessment and Plan: Plt count 30K on admisison and dropped to 21K. Splenomegaly noted by CT scan. Abd US showing cirrhosis so probably related to sequestration. Hgb dropping from 14 to 10.5 (but could be related to IV fluids). B12 normal. Platelet transfusion on 11/04 Plt count 44K after the transfusion and higher today at 52K Follow and transfuse as needed. (5) Hypovolemia: Code(s): E86.1 - Hypovolemia Status: Acute Assessment and Plan: Better. positive fluid balance. Monitor cmp (6) Hyponatremia: Code(s): E87.1 - Hypo-osmolality and hyponatremia Status: Acute Assessment and Plan: Sodium 118 on admission and dropped to 116. He was fluid resuscitated for sepsis and sodium remained stable Some of this could be related to hyperglycemia and/or SIADH and/or cirrhosis. Not fluid overloaded. Sodium 135 in July Urine Na 33 Nephrology consulted and appreciate their input Na has climbed slowly to 123 but now stable. Positive fluid balance Continue to correct hyperglycemia. Consider adding NaCl tabs (7) Renal failure: Code(s): N19 - Unspecified kidney failure Status: Acute Assessment and Plan: Cr 2.2 on admission but has climbed to 4.5 today despite IV fluids. probably a component of ATN He has normal renal function at baseline Renal US showing no hydronephrosis. UOP 1050mL yesterday but only 550mL so far today. Bicarb low but improved at 20 today. Potassium normal. Mild fluid overloaded vs chronic edema related to his paralysis Currently off IV fluids Continue oral bicarb Nephrology following Monitor UOP, electrolytes and renal fxn (8) T2DM (type 2 diabetes mellitus): Code(s): E11.9 - Type 2 diabetes mellitus without complications Status: Acute Assessment and Plan: Patient poorly controlled prior to admission with HgbA1c 14. The patient's blood glucose was reviewed on 11/05 Glucose bett
[2023-11-07 16:18] LABS: Glucose Point of Care 158 mg/dl (65-105)
[2023-11-07 17:32] LABS: Alveolar/Arterial O2 Gradient 47.3 mmHg; Base Excess ABG -8.4 mEq/l (+/-2.0); Fractional Inspired Oxygen 21 %; PCO2 ABG 40.3 mmHg (35.0-45.0); PO2 ABG 54.2 mmHg (80.0-100.0); PO2 FiO2 Ratio Arterial Blood 2.58 %; Total Hemoglobin 11.8 g/dL (12.0-18.0)
[2023-11-07 17:40] LABS: Oxygen Saturation ABG 83.9 % (95.0-100.0); pH ABG 7.268 (7.350-7.450)
[2023-11-07 17:42] LABS: Oxyhemoglobin 84.5 % THb (90.0-100.0); Site Drawn RIGHT BRACHIAL
[2023-11-07 17:43] LABS: Device ROOM AIR; Modified Allen's Test Pass
[2023-11-07] MEDS: SODIUM BICARBONATE 8.4% 50 MEQ/50 ML SYRINGE IV PUSH (18:03)
[2023-11-07] MEDS: HYDROcodone/acetaminophen (*CRX) 5-325 MG TABLET 1 TAB PO (20:43)
[2023-11-07 20:45] LABS: Glucose Point of Care 115 mg/dl (65-105)
[2023-11-07] MEDS: INSULIN GLARGINE (*BKC) 100 UNITS/ML 25 UNITS SUB-Q (20:57)
--- NOTE | 2023-11-07 23:44 | PC.NURSE ---
Patient left via EMS at 2156 to [facility]. [phone] called transfer line to let them know the patient was on the way.
--- NOTE | 2023-11-08 07:14 | PM.TDS ---
Transfer Discharge Sum: Prov Provider Date of admission: 11/03/23 06:29 Primary care physician: Idris Huffman, MD Admitting clinician: J Luis Oliver MD Consults: 11/03/23 Consult to Physician Routine Comment: Consulting Provider: Bhavin Lala Reason for consultation: Concern for emphysematous pyelonephritis, hyponatremia 118 Has provider been notified: Yes Consult to Physician Routine Comment: Called office and notified them of consult Consulting Provider: Andrew Patel outbound call center representative/MD group to consult: urology. ed consulted urology already i believe? but not sure if pt was seen or not Reason for consultation: suprapubic cath not draining Has provider been notified: Yes 11/03/23 16:18 Consult to Physician Routine Comment: Spoke with and notified him of consult Consulting Provider: Jassi Funez outbound call center representative/MD group to consult: raven Reason for consultation: TOI, hyponatremia Has provider been notified: Yes DS: Admitting Diagnosis Discharge Date 11/07/23 Admitting Diagnosis Nausea, vomiting. 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 - Tubulo-interstitial nephritis, not specified as acute or chronic Status: Acute (3) Kidney hematoma without rupture of capsule, without open wound into cavity: Code(s): S37.019A - Minor contusion of unspecified kidney, initial encounter Status: Acute (4) Thrombocytopenia: Code(s): D69.6 - Thrombocytopenia, unspecified Status: Acute (5) Hypovolemia: Code(s): E86.1 - Hypovolemia Status: Acute (6) Hyponatremia: Code(s): E87.1 - Hypo-osmolality and hyponatremia Status: Acute (7) Renal failure: Code(s): N19 - Unspecified kidney failure Status: Acute (8) T2DM (type 2 diabetes mellitus): Code(s): E11.9 - Type 2 diabetes mellitus without complications Status: Acute (9) Suprapubic catheter: Code(s): Z93.59 - Other cystostomy status Status: Chronic (10) Seizure: Code(s): R56.9 - Unspecified convulsions Status: Acute (11) Orthostatic hypotension: Code(s): I95.1 - Orthostatic hypotension Status: Acute (12) Hypothyroidism: Code(s): E03.9 - Hypothyroidism, unspecified Status: Acute (13) Elevated bilirubin: Code(s): R17 - Unspecified jaundice Status: Acute Transfer Discharge Sum: Med Medications Active and Home Medications: Home Medications bisacodyl 5 mg tablet 5 mg PO ONCE 11/03/23 [History Confirmed 11/03/23] ergocalciferol (vitamin D2) 1,250 mcg (50,000 unit) capsule 1,250 mcg PO WEEKLY 11/03/23 [History Confirmed 11/03/23] ferrous sulfate 325 mg (65 mg iron) tablet 325 mg PO DAILY 11/03/23 [History Confirmed 11/03/23] folic acid 1 mg tablet 1 mg PO DAILY 11/03/23 [History Confirmed 11/03/23] gabapentin 300 mg tablet 300 mg PO TID 11/03/23 [History Confirmed 11/03/23] insulin NPH-regular 70-30 U-100 insulin 100 unit/mL subcutaneous pen (Humulin 70/30 U-100 KwikPen) 15 unit subcut DAILY 11/03/23 [History Confirmed 11/03/23] ipratropium 20 mcg-albuterol 100 mcg/actuation mist for inhalation (Combivent Respimat) See Rx Instructions .Route .COMPLEX 11/03/23 [History Confirmed 11/03/23] levetiracetam 500 mg tablet 500 mg PO BID 11/03/23 [History Confirmed 11/03/23] levothyroxine 50 mcg tablet 50 mcg PO DAILY 11/03/23 [History Confirmed 11/03/23] magnesium 200 mg tablet 200 mg PO DAILY 11/03/23 [History Confirmed 11/03/23] melatonin 3 mg tablet 3 mg PO HS PRN Urinary Retention 11/03/23 [History Confirmed 11/03/23] midodrine 5 mg tablet 5 mg PO TID 11/03/23 [History Confirmed 11/03/23] mirtazapine 30 mg tablet 30 mg PO HS 11/03/23 [History Confirmed 11/03/23] oxycodone 10 mg tablet
[2023-11-09 08:17] LABS: Osmolality, Urine 203
== END 2023-11-07 21:56 | disposition short-term general hospital (02) | DRG 698 ==
LOC: ANHED 06:00 → ANHIMU 07:09
PROVIDERS: Internal Medicine Nephrology; Nurse Practitioner; Student in an Organized Health Care Education/Training Program; Admitting Provider Internal Medicine; Emergency Provider Emergency Medicine; PCP Internal Medicine; Visit Provider Internal Medicine
DX: T83.510A Infection and inflammatory reaction due to cystostomy catheter, initial encounter (principal); A41.59 Other Gram-negative sepsis; R65.21 Severe sepsis with septic shock; N12 Tubulo-interstitial nephritis, not specified as acute or chronic; E87.1 Hypo-osmolality and hyponatremia; N17.9 Acute kidney failure, unspecified; S37.012A Minor contusion of left kidney, initial encounter; R17 Unspecified jaundice; I95.1 Orthostatic hypotension; N20.0 Calculus of kidney; D69.6 Thrombocytopenia, unspecified; E86.1 Hypovolemia; E86.0 Dehydration; E03.9 Hypothyroidism, unspecified; E10.9 Type 1 diabetes mellitus without complications; G89.29 Other chronic pain; R56.9 Unspecified convulsions; Z20.822 Contact with and (suspected) exposure to COVID-19; Z93.6 Other artificial openings of urinary tract status; Z79.4 Long term (current) use of insulin; Z79.899 Other long term (current) drug therapy
CPT/HCPCS: 36415; 36430; 36600; 71250; 74176; 76700; 76775; 80048; 80053; 80177; 81001; 82140; 82248; 82550; 82607; 82728; 82746; 82805; 82948; 83036; 83540; 83550; 83605; 83690; 83735; 83935; 84100; 84295; 84300; 84443; 85025; 85027; 85049; 85055; 85610; 85730; 85999; 86900; 86901; 87040; 87077; 87086; 87088; 87186; 87637; 92610; 93005; 96361; 96374; 99285; A9270; J0696; J1815; J1956; J2185; J2543; J3370; J7030; J7050; P9034

== ENCOUNTER 2023-12-23 15:45 | Emergency (ER) | payer OTHER, MEDICARE, MEDICAID, SELFPAY ==
[2023-12-23] VITALS (22 sets, daily range): BP systolic 60–153; BP diastolic 36–78; PULSE 97–112; RESP 13–24; TEMP 36.7; O2SAT 98–100
--- NOTE | ~2023-12-23 | XR_ITS ---
EXAMINATION: XR chest 1V portable DATE: 12/23/2023 17:42 INDICATION: Lethargy. TECHNIQUE: A single frontal view of the chest was obtained. COMPARISON: Chest CT 11/03/2023 FINDINGS: There is a diffuse interstitial pattern, consistent with mild pulmonary edema. No pleural e ffusion or pneumothorax. The heart size is normal. There are old healed bilateral rib fractures. IMPRESSION: 1. Mild pulmonary edema. Reviewed, dictated and finalized at location E. IMPRESSION: 1. Mild pulmonary edema.
--- NOTE | ~2023-12-23 | XR_ITS ---
EXAMINATION: XR nephrostomy tube change DATE: 12/24/2023 15:52 INDICATION: Left nephrostomy tube change for broken catheter TECHNIQUE: A time-out was performed to verify the patient's name, date of , and procedure to b e performed. The procedure including the risks, benefits, and alternatives was discussed with the pat ient. Risks discussed included bleeding and infection. The patient understood the risks and agreed to proceed. The patient was confirmed to be receiving appropriate antibiotic coverage. Initial fluorosc opic spot image was obtained with injection of 10 mL Omnipaque-240 water-soluble contrast. The expose d portion of the catheter in the surrounding skin at the catheter entry site was prepped and draped i n usual sterile fashion. The catheter was cut and additional 10 mm of Omnipaque 240 water-soluble con trast was injected to opacify the collecting system. A J-wire advanced under continuous fluoroscopic observation the catheter within the distal wire observed coiled in the left renal pelvis. With contin uous fluoroscopic observation the catheter was removed over the wire and a new 25 cm, 8.5 Khmer cath eter advanced over the wire into the left renal pelvis and the loop formed and locked. Additional 5 m m of Omnipaque 240 was injected to confirm the position of the catheter within the renal pelvis. Anes thetic was administered with 1% lidocaine subcutaneously and the catheter fixed to the skin with sutu re. About equipment and a sterile dressing were applied. The catheter was attached to gravity drainag e and was draining a small amount of pinkish urine at the conclusion of the procedure. There were no immediate complications. Fluoroscopy exposure time was 0.6 minutes. The total number of images was 6. Total DAP was 9.652 Gycm^2. FINDINGS: Image demonstrate contrast injected through the patient's existing catheter opacifying the left renal collecting system and extending beyond a nonobstructing large stone at the left ureteropel blake junction. Subsequent images demonstrate replacement of the catheter with a new percutaneous nephr ostomy tube with distal loop formed in the left renal pelvis. IMPRESSION: 1. Successful left percutaneous nephrostomy tube change under fluoroscopy. Reviewed, dictated and finalized at location A.
--- NOTE | 2023-12-23 16:00 | ED.MALEGU ---
HPI - Male Genitourinary General Chief complaint: Urogenital-Male <Pop Hodge MD - Last Filed: 12/24/23 17:04> Stated complaint: nephrostomy tube issue <Pop Hodge MD - Last Filed: 12/24/23 17:04> Time Seen by Provider: 12/23/23 16:00 <Pop Hodge MD - Last Filed: 12/24/23 17:04> Source: EMS <Pop Hodge MD - Last Filed: 12/24/23 17:04> Mode of arrival: EMS <Pop Hodge MD - Last Filed: 12/24/23 17:04> Limitations: clinical condition <Pop Hodge MD - Last Filed: 12/24/23 17:04> History of Present Illness HPI Narrative: 53 YEARS OLD WHITE MALE, HOSPICE, CAME FROM [facility]ILL[facility] NURSING BECAUSE THE NEPHROSTOMY TUBE ON THE LEFT SIDE GOT SNAPPED AND LEAKING OUTSIDE, NO UROSTOMY BAG AVAILABLE AT THIS TIME. THE HOSPICE TEAM WAS NOTIFIED AT [facility] TODAY. UNKNOWN DURATION OF THE UROSTOMY TUBE MALFUNCTIONING. HISTORY OF EMPHYSEMATOUS PYELONEPHRITIS, TUBULAR INTERSTITIAL NEPHRITIS NOT SPECIFIED ACUTE OR CHRONIC, KIDNEY HEMATOMA, SUPRAPUBIC CATHETER, CYSTOSTOMY STATUS/CHRONIC, SECONDARY TO NEUROGENIC BLADDER, DIABETES, METABOLIC ACIDOSIS, <Pop Hodge MD - Last Filed: 12/24/23 17:04> Related Data Home medications: Home Medications Medication Instructions Recorded Confirmed bisacodyl 5 mg tablet 5 mg PO ONCE 11/03/23 11/03/23 ergocalciferol (vitamin D2) 1,250 1,250 mcg PO WEEKLY 11/03/23 11/03/23 mcg (50,000 unit) capsule ferrous sulfate 325 mg (65 mg 325 mg PO DAILY 11/03/23 11/03/23 iron) tablet folic acid 1 mg tablet 1 mg PO DAILY 11/03/23 11/03/23 gabapentin 300 mg tablet 300 mg PO TID 11/03/23 11/03/23 insulin NPH-regular 70-30 U-100 15 unit subcut DAILY 11/03/23 11/03/23 insulin 100 unit/mL subcutaneous pen (Humulin 70/30 U-100 Campos) ipratropium 20 mcg-albuterol 100 See Rx Instructions .Route .COMPLEX 11/03/23 11/03/23 mcg/actuation mist for inhalation (Combivent Respimat) levetiracetam 500 mg tablet 500 mg PO BID 11/03/23 11/03/23 levothyroxine 50 mcg tablet 50 mcg PO DAILY 11/03/23 11/03/23 magnesium 200 mg tablet 200 mg PO DAILY 11/03/23 11/03/23 melatonin 3 mg tablet 3 mg PO HS PRN Urinary Retention 11/03/23 11/03/23 midodrine 5 mg tablet 5 mg PO TID 11/03/23 11/03/23 mirtazapine 30 mg tablet 30 mg PO HS 11/03/23 11/03/23 oxycodone 10 mg tablet 10 mg PO Q4H PRN Pain (Scale Score 11/03/23 11/03/23 4-6) pantoprazole 40 mg tablet,delayed 40 mg PO QAM 11/03/23 11/03/23 release (Protonix) phenazopyridine 200 mg tablet 200 mg PO TID PRN Urinary Retention 11/03/23 11/03/23 sertraline 50 mg tablet 50 mg PO DAILY 11/03/23 11/03/23 suvorexant 20 mg tablet (Belsomra) 20 mg PO HS 11/03/23 11/03/23 tamsulosin 0.4 mg capsule 0.4 mg PO DAILY 11/03/23 11/03/23 tolterodine 2 mg tablet 2 mg PO BID 11/03/23 11/03/23 <Pop Hodge MD - Last Filed: 12/24/23 17:04> Allergies/Adverse reactions: Allergies Allergy/AdvReac Type Severity Reaction Status Date / Time metformin Allergy Hives Verified 11/03/23 04:42 <Pop Hodge MD - Last Filed: 12/24/23 17:04> Review of Systems Review of Systems: ROS unobtainable: Yes unobtainable due to medical condition <Pop Hodge MD - Last Filed: 12/24/23 17:04> PMFSH Social History Social History: Social History Smoking status: Former smoker Tobacco type: cigarettes Second hand tobacco smoke exposure: No Alcohol intake: never Substance use: never Do You Feel Safe in your Home?: Yes Lack of Transportation: No Lack of Food: Never True Current Housing: I Have Housing Concerned About Future Housing: No Difficulty Paying Gas/Electric Bills: No Difficulty Paying for Meds: No Currently Unemployed: No Education: High School Diploma/GED Difficulty w/ Childcare or Family Care: No Spiritual care concerns: No <Pop Hodge MD - Last Filed: 12/24/23 17:04> Exam Narrative: GENERAL APPEARANCE: WELL-DEVELOPED,
--- NOTE | 2023-12-23 16:33 | ECG_ITS ---
Test Date: 2023-12-23 16:54:18 Measurements Intervals [place] Rate: 106 P: 23 WV: 161 QRS: 55 QRSD: 110 T: -47 QT: 288 QTc: 383 Interpretive Statements SINUS TACHYCARDIA POSSIBLE LEFT ATRIAL ENLARGEMENT INTRAVENTRICULAR CONDUCTION DELAY VOLTAGE CRITERA FOR LVH CONSIDER INFERIOR INFARCT, AGE INDETERMINATE CONSIDER ANTERIOR INFARCT, AGE INDETERMINATE ST-T WAVE ABNORMALITY IN ANTEROLATERAL LEADS- CONSIDER ISCHEMIA BASELINE ARTIFACT- I, II, III, AVR, AVL, AVF, V1-V6 ABNORMAL ECG No previous ECG available for comparison Electronically Signed On 12-23-2023 20:35:23 CDT by Ja Hooker D.O.
--- NOTE | 2023-12-23 16:40 | PC.NURSE ---
called the pt mother/POA per MD at this time. pt mother/POA told this RN that the urostomy tube was placed because he had an infection in his blood that got to his kidney and the tube was placed to the kidneys would drain . pt mother/POA would like the pt transferred to [facility] to fix the tube and is aware of the pt coming off hospice to do this
[2023-12-23 16:54] LABS: Basophils Percent Auto 0.8 % (0.2-1.2); Eosinophils Absolute Auto 0.2 K/mm3 (0-0.3); Eosinophils Percent Auto 3.6 % (0-4.4); Hematocrit 24.7 % (42.0-52.0); Hemoglobin 8.1 g/dL (14.0-18.0); Immature Granulocyte Absolute 0.05 K/mm3 (0.00-0.031); Immature Granulocyte Percent A 1.1 % (0-0.5); Immature Platelet Fraction Pct 2.7 % (0.9-11.2); Lymphocytes Percent Auto 21.2 % (18.3-44.2); Mean Corpuscular HGB Conc 32.8 g/dl (32-36); Mean Corpuscular Volume 94.6 fl (80-100); Mean Platelet Volume 9.9 fl (7.4-10.4); Monocytes Absolute Auto 0.5 K/mm3 (0.1-0.6); Monocytes Percent Auto 9.5 % (2.6-8.5); Neutrophils Percent Auto 63.8 % (45.5-73.1); Platelet Count Result 87 k/mm3 (150-375); Red Blood Count 2.61 M/mm3 (4.6-6.20); Red Cell Distribution Width 17.6 % (11.5-14.5); White Blood Count 4.7 K/mm3 (4.5-10.0)
[2023-12-23 17:01] LABS: Lactic Acid Reflex 0.9 mmol/L (0.7-2.0)
[2023-12-23 17:07] LABS: Alanine Aminotransferase 11 U/L (6-50); Albumin Level 3.6 g/dL (3.5-5.1); Alkaline Phosphatase 93 U/L (38-126); Anion Gap 14 mmol/L (4-12); Aspartate Amino Transferase 26 U/L (17-59); Bilirubin,Total 1.4 mg/dL (0.2-1.3); Blood Urea Nitrogen 29 mg/dL (9-20); CRP 2.4 mg/dL (<1.0); Calcium 8.3 mg/dL (8.4-10.2); Carbon Dioxide 17 mmol/L (22-30); Chloride 104 mmol/L (98-107); Estimated CRCL calculation 39 ml/min; Estimated Glomerular Filt Rate 24; Glucose 145 mg/dL (65-110); Potassium 2.8 mmol/L (3.4-5.0); Sodium 135 mmol/L (137-145)
[2023-12-23 17:08] LABS: INR 1.4; Prothrombin Time 17.3 Seconds (11.1-14.7)
[2023-12-23 17:09] LABS: Anisocytosis 1+; Partial Thromboplastin Time 32.1 Seconds (22.3-36.8); Platelet Estimate Decreased (Adequate); Schistocytes None Seen
[2023-12-23 18:09] LABS: Appearance Urine Turbid (Clear); Bacteria Urine 4+ /hpf; Bilirubin Urine Negative (Negative); Blood Urine 3+ (Negative); Color Urine Yellow (Yellow); Glucose Urine UA Negative (Negative); Ketones Urine Negative (Negative); Leukocyte Esterase Ur 3+ LEU/UL (Negative); Mucus Urine Present /lpf; Need Manual Microscopic Reviewed; Nitrate Urine Positive (Negative); Non Pathogenic Casts >20; Protein Urine 2+ mg/dL (Negative); RBC Urine >100 /hpf (0-2); Specific Grav Ur 1.007 (1.001-1.035); Squamous Epithelial Cell Urine Few /hpf (Few); WBC Urine >100 /hpf (0-3)
[2023-12-23 18:10] LABS: Add Urine Microscopic? YES
[2023-12-23] MEDS: POTASSIUM CHLORIDE 20 MEQ PACKET (FOR LIQUID) 40 MEQ PO (18:41)
[2023-12-23] MEDS: PIPERACILLN/TAZ 3.375GM/NS50ML 3.375 GM/50 ML BAG IVPB (18:42)
[2023-12-23] MEDS: SODIUM CHLORIDE 0.9% IV 1,000 ML 999 ML IV CONT ×3 (18:58→18:59)
--- NOTE | 2023-12-23 19:00 | PC.NURSE ---
Dr. Hodge called pt mother to verify plan of care. Mom reports to Dr. Hodge that she is ok with IV fluid and antibiotics, but does not want aggressive treatment for low blood pressures. Dr. Hodge hears this over the phone and then hands phone to this RN who verifies the plan of care with the patient's mother.
[2023-12-23] MEDS: ONDANSETRON INJ 4 MG/2 ML VIAL 8 MG IV PUSH (19:43)
--- NOTE | 2023-12-23 20:12 | PC.NURSE ---
notified EDP of the pt decreasing BP, infused 3 litters of fluids. MD aware. no new orders at this time
[2023-12-23] MEDS: PIPERACILLIN/TAZ 2.25G/NS 50ML 2.25 GM/50 ML BAG IVPB (23:59)
[2023-12-24] VITALS (95 sets, daily range): BP systolic 55–141; BP diastolic 27–121; PULSE 76–109; RESP 13–26; O2SAT 85–100
[2023-12-24] MEDS: SODIUM CHLORIDE 0.9% IV 1,000 ML 120 ML IV CONT ×2 (03:08→12:36)
--- NOTE | 2023-12-24 03:08 | PC.NURSE ---
EDP aware of hypotension; maintenance fluids administered
[2023-12-24] MEDS: PIPERACILLIN/TAZ 2.25G/NS 50ML 2.25 GM/50 ML BAG IVPB ×2 (06:09→12:36)
[2023-12-24] MEDS: POTASSIUM CHLORIDE 20 MEQ ER TABLET 40 MEQ PO (09:47)
--- NOTE | 2023-12-24 12:38 | PC.NURSE ---
EDP made aware about patients blood pressure dropping to 57/43 and gave VORB to renew maintenance fluid orders 1L NS at 120 mL/hr
--- NOTE | 2023-12-24 15:02 | PC.NURSE ---
1500 remains on bed waitlist @ capacity
--- NOTE | 2023-12-24 20:05 | PC.NURSE ---
erp shade and ems [place] [facility] had a conversation about lower bp on ems monitor of 70/50. per erp Conversation was had with family and they decided not to be agressive about bp. ems aware and exited facility at this time .
== END 2023-12-24 20:06 | disposition hospice, home (50) ==
PROVIDERS: Emergency Provider Emergency Medicine; PCP Internal Medicine
DX: T83.092A Other mechanical complication of nephrostomy catheter, initial encounter (principal); T83.510A Infection and inflammatory reaction due to cystostomy catheter, initial encounter; N39.0 Urinary tract infection, site not specified; E87.6 Hypokalemia; E11.9 Type 2 diabetes mellitus without complications; N31.9 Neuromuscular dysfunction of bladder, unspecified; N12 Tubulo-interstitial nephritis, not specified as acute or chronic; Z87.891 Personal history of nicotine dependence; Y73.8 Miscellaneous gastroenterology and urology devices associated with adverse incidents, not elsewhere classified; Y84.6 Urinary catheterization as the cause of abnormal reaction of the patient, or of later complication, without mention of misadventure at the time of the procedure; Z79.4 Long term (current) use of insulin; Z79.899 Other long term (current) drug therapy; J81.1 Chronic pulmonary edema; R00.0 Tachycardia, unspecified; R94.31 Abnormal electrocardiogram [ECG] [EKG]; I45.9 Conduction disorder, unspecified
CPT/HCPCS: 36415; 50435; 71045; 80053; 81001; 83605; 85025; 85055; 85610; 85730; 86140; 87040; 87077; 87086; 87186; 93005; 96361; 96365; 96366; 96375; 99284; A9270; C1729; J2405; J2543; J7030; Q9966

== ENCOUNTER 2024-01-03 13:55 | Observation (INO) | payer OTHER, MEDICARE, MEDICAID, SELFPAY ==
[2024-01-03] VITALS (7 sets, daily range): BP systolic 71–127; BP diastolic 42–72; PULSE 65–102; RESP 14–21; TEMP 36.5–37.1; O2SAT 94–100
--- NOTE | ~2024-01-03 | XR_ITS ---
EXAMINATION: XR nephrostomy tube change DATE: 01/03/2024 16:35 INDICATION: Fractured nephrostomy tube TECHNIQUE: A time-out was performed to verify the patient's name, date of , and procedure to b e performed. The broken catheter and the surrounding skin prepped and draped in usual sterile fashion . 5 mL of Omnipaque 240 was injected into the catheter. The contrast distributed into the soft tissue s likely around the right kidney with no evident contrast within the renal collecting system consiste nt with displacement of the catheter. The catheter was therefore removed and a sterile dressing was a pplied. There were no immediate complications. Fluoroscopy exposure time was 0.1 minutes. The total n umber of images was 1. FINDINGS: Real-time fluoroscopy demonstrates the injected contrast infiltrating into the soft tissues likely peripheral to the left kidney. No evident contrast extending to the renal collecting system. Given the malpositioned with no ability to salvage the catheters tract was elected to remove the cath eter was planned to place a new percutaneous left nephrostomy tube on the following day. The stone at the right ureteropelvic junction appears unchanged from prior study performed 12/24/2023. IVC filter projects of the right side of the upper lumbar spine. IMPRESSION: 1. The fracture left percutaneous nephrostomy tube was demonstrated be displaced from the left renal collecting system and was therefore removed. Following discussion with Dr. Otoole the patient will b e admitted with plan to place a new left percutaneous nephrostomy tube utilizing CT guidance on the . Reviewed, dictated and finalized at location A. IMPRESSION: 1. The fracture left percutaneous nephrostomy tube was demonstrated be displace d from the left renal collecting system and was therefore removed. Following di scussion with Dr. Otoole the patient will be admitted with plan to place a new left percutaneous nephrostomy tube utilizing CT guidance on the following day.
--- NOTE | ~2024-01-03 | CT_ITS ---
CT abdomen wo con Ordering provider: Manjit Barbosa MD History: . EVAL NEPHROSTOMY TUBE . Comparison: None. Technique: CT abdomen without IV and without oral contrast. Radiation reduction technique utilized. D LP is 1035.35 mGy-cm. Findings: VISUALIZED LOWER CHEST: Dependent atelectatic changes with minimal thickening of the pleura bilateral ly UPPER ABDOMINAL ORGANS: Liver: Normal. Gallbladder: Distended with no stones. Spleen: Splenomegaly. Stomach/duodenum: Normal. Pancreas: Normal. Adrenals: Normal. Kidneys: Contrast collection is seen in around the left kidney with minimal area. Stones are seen in the left upper ureter and pelvis. The right kidney is normal. No tubes seen in the left kidney area VISUALIZED BOWEL AND MESENTERY: No evidence of diverticulitis. The appendix is partially demonstrated with no definite abnormality. Visualized bowel is unremarkable. Fluid is seen in the left paracolic gutter. No mesenteric lymphadenopathy. RETROPERITONEUM: Mild atheromatous disease of the abdominal aorta. IVC filter is noted. No retroperit dorman lymphadenopathy. Small para-aortic lymph nodes are noted. MUSCULOSKELETAL: The superficial soft tissues are normal. Age appropriate degenerative changes of the spine. Degenerative disc disease is in the thoracolumbar area with increased kyphosis. IMPRESSION: Left upper ureter and renal pelvis stones with contrast collection around the left kidney. No tubes s een in the area. Splenomegaly. Reviewed, dictated and finalized at location A. IMPRESSION: Left upper ureter and renal pelvis stones with contrast collection around the l eft kidney. No tubes seen in the area. Splenomegaly.
[2024-01-03] MEDS: SODIUM CHLORIDE 0.9% IV 1,000 ML 999 ML IV CONT (14:25)
[2024-01-03] MEDS: fentaNYL CITRATE INJ (*CRX) 100 MCG/2 ML VIAL 50 MCG IV PUSH ×2 (15:24→18:11)
--- NOTE | 2024-01-03 15:28 | PC.NURSE ---
pt taken at this time to get his nephrostomy tube replaced
--- NOTE | 2024-01-03 16:23 | PC.NURSE ---
pt is now back from tube replacement that was unsuccessful
[2024-01-03 16:59] LABS: Eosinophils Absolute Auto 0.1 K/mm3 (0-0.3); Eosinophils Percent Auto 3.3 % (0-4.4); Hematocrit 22.1 % (42.0-52.0); Hemoglobin 7.1 g/dL (14.0-18.0); Immature Granulocyte Absolute 0.03 K/mm3 (0.00-0.031); Immature Platelet Fraction Pct 2.2 % (0.9-11.2); Lymphocytes Absolute Auto 0.92 K/mm3 (0.9-3.2); Lymphocytes Percent Auto 30.2 % (18.3-44.2); Mean Corpuscular HGB Conc 32.1 g/dl (32-36); Mean Corpuscular Hemoglobin 31.8 pg (26-34); Mean Corpuscular Volume 99.1 fl (80-100); Mean Platelet Volume 9.9 fl (7.4-10.4); Monocytes Absolute Auto 0.4 K/mm3 (0.1-0.6); Monocytes Percent Auto 11.5 % (2.6-8.5); Neutrophils Absolute Auto 1.6 K/mm3 (1.3-6.7); Platelet Count Result 69 k/mm3 (150-375); Red Blood Count 2.23 M/mm3 (4.6-6.20); Red Cell Distribution Width 17.5 % (11.5-14.5); White Blood Count 3.1 K/mm3 (4.5-10.0)
--- NOTE | 2024-01-03 17:04 | ED.GENADULT ---
HPI - General Adult General Chief complaint: Unspecified Stated complaint: nephrostomy tube needs replaced Time Seen by Provider: 01/03/24 14:42 History of Present Illness HPI narrative: Patient is a 53-year-old male who is on the touched hospice due to multiple medical issues that presents ER for evaluation of his nephrostomy tube on left side. Apparently the catheter fractured and it needs to be replaced. Patient has neurogenic bladder and has a suprapubic tube. Patient has no complaints of pain at this time. Blood pressure is low but patient mother report that it is chronically low. Related Data Home Medications Medication Instructions Recorded Confirmed bisacodyl 5 mg tablet 5 mg PO ONCE 11/03/23 11/03/23 ergocalciferol (vitamin D2) 1,250 1,250 mcg PO WEEKLY 11/03/23 11/03/23 mcg (50,000 unit) capsule ferrous sulfate 325 mg (65 mg 325 mg PO DAILY 11/03/23 11/03/23 iron) tablet folic acid 1 mg tablet 1 mg PO DAILY 11/03/23 11/03/23 gabapentin 300 mg tablet 300 mg PO TID 11/03/23 11/03/23 insulin NPH-regular 70-30 U-100 15 unit subcut DAILY 11/03/23 11/03/23 insulin 100 unit/mL subcutaneous pen (Humulin 70/30 U-100 KwikPen) ipratropium 20 mcg-albuterol 100 See Rx Instructions .Route .COMPLEX 11/03/23 11/03/23 mcg/actuation mist for inhalation (Combivent Respimat) levetiracetam 500 mg tablet 500 mg PO BID 11/03/23 11/03/23 levothyroxine 50 mcg tablet 50 mcg PO DAILY 11/03/23 11/03/23 magnesium 200 mg tablet 200 mg PO DAILY 11/03/23 11/03/23 melatonin 3 mg tablet 3 mg PO HS PRN Urinary Retention 11/03/23 11/03/23 midodrine 5 mg tablet 5 mg PO TID 11/03/23 11/03/23 mirtazapine 30 mg tablet 30 mg PO HS 11/03/23 11/03/23 oxycodone 10 mg tablet 10 mg PO Q4H PRN Pain (Scale Score 11/03/23 11/03/23 4-6) pantoprazole 40 mg tablet,delayed 40 mg PO QAM 11/03/23 11/03/23 release (Protonix) phenazopyridine 200 mg tablet 200 mg PO TID PRN Urinary Retention 11/03/23 11/03/23 sertraline 50 mg tablet 50 mg PO DAILY 11/03/23 11/03/23 suvorexant 20 mg tablet (Belsomra) 20 mg PO HS 11/03/23 11/03/23 tamsulosin 0.4 mg capsule 0.4 mg PO DAILY 11/03/23 11/03/23 tolterodine 2 mg tablet 2 mg PO BID 11/03/23 11/03/23 Allergies Allergy/AdvReac Type Severity Reaction Status Date / Time metformin Allergy Hives Verified 11/03/23 04:42 Review of Systems Review of Systems: All systems reviewed & are unremarkable except as noted in HPI and below Constitutional: Constitutional: Reports no additional constitutional complaints Cardiovascular: Cardiovascular: Reports no additional cardiovascular complaints Respiratory: Respiratory: Reports no additional respiratory complaints Gastrointestinal: Gastrointestinal: Reports no additional gastrointestinal complaints [facility] Past Medical History Medical History (Updated 01/03/24 @ 17:58 by Ron Otoole MD) Displacement of nephrostomy tube Emphysematous pyelonephritis Hypothyroidism Nephrolithiasis Seizure T2DM (type 2 diabetes mellitus) Social History Social History Smoking status: Former smoker Tobacco type: cigarettes Second hand tobacco smoke exposure: No Alcohol intake: never Substance use: never Do You Feel Safe in your Home?: Yes Lack of Transportation: No Lack of Food: Never True Current Housing: I Have Housing Concerned About Future Housing: No Difficulty Paying Gas/Electric Bills: No Difficulty Paying for Meds: No Currently Unemployed: No Education: High School Diploma/GED Difficulty w/ Childcare or Family Care: No Spiritual care concerns: No Exam Narrative: GENERAL: Chronically ill-appearing, obese, and in no acute distress. HEAD: Normocephalic, atraumatic. EYES: PERRL and EOMI. ENT: Mucous membranes moist. CHEST: Clear to auscultation. No respiratory distress. HEART: Regular rate and rhythm. Normal peripheral pulses. ABDOMEN: Soft, nontender, nondistended
[2024-01-03 17:14] LABS: Alanine Aminotransferase 10 U/L (6-50); Albumin Level 3.1 g/dL (3.5-5.1); Alkaline Phosphatase 76 U/L (38-126); Anion Gap 12 mmol/L (4-12); Aspartate Amino Transferase 27 U/L (17-59); Bilirubin,Total 0.9 mg/dL (0.2-1.3); Blood Urea Nitrogen 15 mg/dL (9-20); Carbon Dioxide 18 mmol/L (22-30); Chloride 105 mmol/L (98-107); Estimated CRCL calculation 43 ml/min; Estimated Glomerular Filt Rate 27; Glucose 122 mg/dL (65-110); Potassium 2.7 mmol/L (3.4-5.0); Sodium 135 mmol/L (137-145)
[2024-01-03] MEDS: POTASSIUM CHLORIDE 20 MEQ ER TABLET 40 MEQ PO ×2 (17:26→22:01)
[2024-01-03] MEDS: ACETAMINOPHEN 325 MG TABLET 650 MG PO (18:12)
--- NOTE | 2024-01-03 18:28 | PCCCNOTE ---
CC was called to the ED to communicate with [facility] regarding pt getting tube replaced here, or being transferred. Also regarding his DNR status, [facility] had pt as a full code. Pt is a DNR, per Alejandrina at [facility]. Alejandrina was contacted about pt needing to have procedure done tomorrow, and the pt would be admitted as an OBS pt, would they want to be the admitting Dr.? They prefer pt be under the hospitalist.
--- NOTE | 2024-01-03 18:48 | PC.NURSE ---
Patient arrived on the unit at 1845. Patient given pain medication in the ED. He is very tired/lethargic and mildly confused. Patient is not able to answer questions at this time.
--- NOTE | 2024-01-03 20:42 | PM.IMHP ---
H&P: HPI History of Present Illness Date/Time: 01/03/24 19:15 Chief Complaint: Broken nephrostomy tube. 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 The patient is a poor historian and thus some of the following history is supplemented via a review of his electronic medical records. He is on hospice at the [facility] [place]. According to transfer report, the left-sided nephrostomy was reportedly fractured however it was dislodged on arrival to the ED. Interventional radiologist will need to place the tube tomorrow under CT guidance in the patient is being admitted in this setting. At the time my evaluation he complains of generalized pain and is asking for his hydromorphone. He has no other complaints and denies fever, chills, sweats, abdominal pain, nausea, and vomiting. In the ED: He was afebrile on arrival. Blood pressures were as low as 71/47 which is not necessarily unusual for him and he was asymptomatic with that. Patient reiterated his DNR/DNI status and would not want a central line. Labs were significant for a WBC count 3.1, hemoglobin 7.1, platelets 69, sodium 135, potassium 2.7, BUN 15, creatinine 2.50, glucose 122, total bilirubin 0.9, albumin 3.1. Review of Systems Review of Systems: 12 systems were reviewed and are negative except for as per HPI. [facility] Past Medical History Medical History (Updated 01/03/24 @ 21:26 by Viviane Phelps PA-C) Cerebrovascular accident Residual left-sided deficits. Chronic anemia Chronic kidney disease Hypothyroidism Insulin dependent type 2 diabetes mellitus Liver cirrhosis secondary to YI Nephrolithiasis Seizure Surgical History Surgical History History of nephrostomy Family History Family History (Updated 01/03/24 @ 21:20 by Viviane Phelps PA-C) Other Family history non-contributory Social History Social History (Updated 01/03/24 @ 21:21 by Viviane Phelps PA-C) Social History: Surrogate medical decision maker: Bisi Hsu, mother. Code status: Do not resuscitate, on hospice. Smoking status: Former smoker Tobacco type: cigarettes Second hand tobacco smoke exposure: No Alcohol intake: never Substance use: never Do You Feel Safe in your Home?: Yes Lack of Transportation: No Lack of Food: Never True Current Housing: I Have Housing Concerned About Future Housing: No Difficulty Paying Gas/Electric Bills: No Difficulty Paying for Meds: No Currently Unemployed: No Education: High School Diploma/GED Difficulty w/ Childcare or Family Care: No Spiritual care concerns: No Meds Home Medications and Allergies Home Medications Medication Instructions Recorded Confirmed Type levetiracetam 500 mg tablet 500 mg PO DAILY 11/03/23 01/03/24 History tamsulosin 0.4 mg capsule 0.4 mg PO DAILY 11/03/23 01/03/24 History acetaminophen 325 mg tablet 650 mg PO Q6H PRN Pain (Scale 01/03/24 01/03/24 History (Tylenol) Score 1-3) hydromorphone 4 mg tablet 6 mg PO Q2H PRN Breakthrough Pain 01/03/24 01/03/24 History hydromorphone 4 mg tablet 6 mg PO Q6H 01/03/24 01/03/24 History hyoscyamine sulfate 0.125 mg 0.125 mg PO Q4H PRN Abdominal Pain 01/03/24 01/03/24 History sublingual tablet (Levsin/SL) lorazepam 1 mg tablet 1 mg PO Q4H PRN Anxiety 01/03/24 01/03/24 History lorazepam 1 mg tablet 1 mg PO Q8H 01/03/24 01/03/24 History morphine concentrate 100 mg/5 mL 5 mg PO Q4H PRN Pain (Scale Score 01/03/24 01/03/24 Histo
[2024-01-03] MEDS: HYDROcodone/acetaminophen (*CRX) 5-325 MG TABLET 1 TAB PO (21:00)
[2024-01-03 21:22] LABS: Ammonia 26 umol/L (9-30)
[2024-01-03 21:23] LABS: Anion Gap 12 mmol/L (4-12); Blood Urea Nitrogen 14 mg/dL (9-20); Calcium 8.1 mg/dL (8.4-10.2); Carbon Dioxide 17 mmol/L (22-30); Chloride 106 mmol/L (98-107); Estimated CRCL calculation 43 ml/min; Estimated Glomerular Filt Rate 27; Glucose 123 mg/dL (65-110); Magnesium 1.5 mg/dL (1.6-2.3); Sodium 135 mmol/L (137-145)
[2024-01-03] MEDS: LORazepam (*CRX) 1 MG TABLET PO (22:01)
[2024-01-03] MEDS: HYDROmorphone HCL (*CRX) 2 MG TABLET 6 MG PO ×2 (22:01→23:53)
[2024-01-03] MEDS: MAGNESIUM SULF 2 GM/WATER 50ML 2 GM/50 ML BAG IVPB (22:02)
--- NOTE | 2024-01-03 22:25 | ADMGEN ---
This patient, Alan Garcia, was admitted to Medical Room 259-01. Patient/family oriented to hospital policies and general routines including ID bracelet, bed and alarms, visiting hours, pain management, procedures, bathroom and other care routines, personal items, smoking policy, room service/diet, and visiting hours. Information on how to activate the Rapid Response Team has been discussed. Patient/Family are encouraged to report perceived risks to care and to ask questions if they do not understand what they are told or what they should do.
[2024-01-04] MEDS: HYDROmorphone HCL (*CRX) 2 MG TABLET 6 MG PO ×5 (01:55→17:47)
[2024-01-04 02:24] LABS: Appearance Urine Cloudy (Clear); Bacteria Urine 4+ /hpf; Bilirubin Urine Negative (Negative); Blood Urine 3+ (Negative); Color Urine Yellow (Yellow); Glucose Urine UA Negative (Negative); Ketones Urine Negative (Negative); Leukocyte Esterase Ur 3+ LEU/UL (Negative); Need Manual Microscopic Reviewed; Nitrate Urine Negative (Negative); Protein Urine 1+ mg/dL (Negative); RBC Urine 51-100 /hpf (0-2); Specific Grav Ur 1.006 (1.001-1.035); Squamous Epithelial Cell Urine Occasional /hpf (Few); Urobilinogen Urine 0.2 mg/dL (<2.0); WBC Urine >100 /hpf (0-3); pH Urine 6.5 (5.0-9.0)
[2024-01-04 02:26] LABS: Add Urine Microscopic? YES
[2024-01-04 04:00] VITALS: BP 93/53; PULSE 100; RESP 18; TEMP 36.9; O2SAT 96
[2024-01-04 05:19] LABS: Hematocrit 21.3 % (42.0-52.0); Mean Corpuscular HGB Conc 32.9 g/dl (32-36); Mean Corpuscular Hemoglobin 32.4 pg (26-34); Mean Corpuscular Volume 98.6 fl (80-100); Mean Platelet Volume 9.8 fl (7.4-10.4); Platelet Count Result 57 k/mm3 (150-375); Red Blood Count 2.16 M/mm3 (4.6-6.20); Red Cell Distribution Width 17.3 % (11.5-14.5); White Blood Count 2.8 K/mm3 (4.5-10.0)
[2024-01-04 05:30] LABS: Anion Gap 11 mmol/L (4-12); Blood Urea Nitrogen 14 mg/dL (9-20); Calcium 8.2 mg/dL (8.4-10.2); Carbon Dioxide 16 mmol/L (22-30); Chloride 109 mmol/L (98-107); Estimated CRCL calculation 43 ml/min; Estimated Glomerular Filt Rate 27; Glucose 114 mg/dL (65-110); Magnesium 1.9 mg/dL (1.6-2.3); Sodium 136 mmol/L (137-145)
[2024-01-04] MEDS: LORazepam (*CRX) 1 MG TABLET PO ×2 (05:50→14:13)
[2024-01-04 06:00] VITALS: BP 128/65; PULSE 99; RESP 18; TEMP 36.4; O2SAT 98
[2024-01-04] MEDS: POTASSIUM CHLORIDE INJ 40 MEQ in SODIUM CHLORIDE 0.9% IV 500 ML 130 MEQ IVPB (09:13)
[2024-01-04] MEDS: levETIRAcetam 500 MG TABLET PO (09:13)
[2024-01-04] MEDS: TAMSULOSIN HCL 0.4 MG CAPSULE PO (09:13)
[2024-01-04] MEDS: SENNOSIDES 8.6 MG TABLET 17.2 MG PO ×2 (09:13→17:47)
[2024-01-04 09:29] LABS: Glucose Point of Care 104 mg/dl (65-105)
[2024-01-04] MEDS: AMOXICILLIN/CLAVULANATE K 875-125 MG TAB 1 TABLET PO (12:02)
--- NOTE | 2024-01-04 12:18 | PM.DS ---
DS: Admitting Diagnosis Discharge Date 01/04/2024 Admitting Diagnosis Dislodged Nephrostomy Tube DS: Discharge Diagnosis Discharge Diagnosis (1) Nephrostomy tube displaced: Code(s): T83.022A - Displacement of nephrostomy catheter, initial encounter Status: Acute (2) Hypokalemia: Code(s): E87.6 - Hypokalemia Status: Acute (3) Hypotension: Code(s): I95.9 - Hypotension, unspecified Status: Acute (4) Pancytopenia: Code(s): D61.818 - Other pancytopenia Status: Acute (5) Insulin dependent type 2 diabetes mellitus: Code(s): E11.9 - Type 2 diabetes mellitus without complications; Z79.4 - halfway (current) use of insulin Status: Acute (6) Liver cirrhosis secondary to YI: Code(s): K75.81 - Nonalcoholic steatohepatitis (YI); K74.60 - Unspecified cirrhosis of liver Status: Acute (7) Seizure: Code(s): R56.9 - Unspecified convulsions Status: Acute (8) Hospice care patient: Code(s): Z51.5 - Encounter for palliative care Status: Acute Plan The patient presented to the emergency department after his nephrostomy tube became dislodged as detailed in HPI. Labs, imaging, EKG, and all reports were personally reviewed. The interventional radiologist will replace the tube tomorrow under CT guidance. The patient's potassium is low and will be replaced. Blood pressures are intermittently soft which is a chronic finding for him. He is on hospice and states he would not want a central line or vasopressors. Analgesics available as needed. Pancytopenia is likely related to his cirrhosis. Hemoglobin is a bit lower than what he typically runs and will be monitored. Initiate sliding scale insulin, Accu-Cheks, and hypoglycemic protocol. His home medications will be reviewed and resumed as appropriate. Findings and treatment plan were discussed with the patient. Questions were solicited and answered to satisfaction. The patient's medical management will be taken over by the hospitalist team in a.m. 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 The patient is a poor historian and thus some of the following history is supplemented via a review of his electronic medical records. He is on hospice at the [facility]. According to transfer report, the left-sided nephrostomy was reportedly fractured however it was dislodged on arrival to the ED. Interventional radiologist will need to place the tube tomorrow under CT guidance in the patient is being admitted in this setting. At the time my evaluation he complains of generalized pain and is asking for his hydromorphone. He has no other complaints and denies fever, chills, sweats, abdominal pain, nausea, and vomiting. In the ED: He was afebrile on arrival. Blood pressures were as low as 71/47 which is not necessarily unusual for him and he was asymptomatic with that. Patient reiterated his DNR/DNI status and would not want a central line. Labs were significant for a WBC count 3.1, hemoglobin 7.1, platelets 69, sodium 135, potassium 2.7, BUN 15, creatinine 2.50, glucose 122, total bilirubin 0.9, albumin 3.1. 01/04/2024: DISCHARGED Nephrostomy drain was unable to be placed successfully with IR at this time would further evaluation. Spoke with patient CHIOMACassandra Duen his mother who does not want any furthe
[2024-01-04 12:45] LABS: Glucose Point of Care 102 mg/dl (65-105)
[2024-01-04 14:00] VITALS: BP 131/56; PULSE 95; RESP 20; TEMP 36.4; O2SAT 99
[2024-01-04 17:28] LABS: Glucose Point of Care 111 mg/dl (65-105)
== END 2024-01-04 19:19 | disposition hospice, inpatient (51) ==
LOC: ANHED 17:58 → ANH2MED 01-04 07:08
PROVIDERS: Physician Assistant; Radiology Diagnostic Radiology; Admitting Provider Internal Medicine; Emergency Provider Emergency Medicine; PCP Internal Medicine; Visit Provider Nurse Practitioner Family
DX: T83.012A Breakdown (mechanical) of nephrostomy catheter, initial encounter (principal); E87.6 Hypokalemia; Y84.6 Urinary catheterization as the cause of abnormal reaction of the patient, or of later complication, without mention of misadventure at the time of the procedure; N31.9 Neuromuscular dysfunction of bladder, unspecified; E11.22 Type 2 diabetes mellitus with diabetic chronic kidney disease; N18.9 Chronic kidney disease, unspecified; K75.81 Nonalcoholic steatohepatitis (NASH); I95.9 Hypotension, unspecified; D61.818 Other pancytopenia; K74.60 Unspecified cirrhosis of liver; I69.354 Hemiplegia and hemiparesis following cerebral infarction affecting left non-dominant side; E03.9 Hypothyroidism, unspecified; G40.909 Epilepsy, unspecified, not intractable, without status epilepticus; Z79.4 Long term (current) use of insulin; Z79.51 Long term (current) use of inhaled steroids; Z79.891 Long term (current) use of opiate analgesic
CPT/HCPCS: 36415; 50389; 50435; 74150; 80048; 80053; 81001; 82140; 82948; 83735; 84100; 85025; 85027; 85055; 87077; 87086; 87088; 87186; 96361; 96365; 96367; 96375; 96376; 99285; A9270; G0378; J0696; J3010; J3475; J3480; J7030; J7040

== ENCOUNTER 2024-06-07 17:21 | Emergency (ER) | payer OTHER, MEDICARE, MEDICAID, SELFPAY ==
--- NOTE | ~2024-06-07 | CT_ITS ---
EXAMINATION: CT soft tissue neck w con DATE: 06/07/2024 19:02 INDICATION: Right lateral jaw swelling. TECHNIQUE: Computed tomography (CT) of the neck was performed with 75 mL Omnipaque-350 intravenous co ntrast. Automated exposure control and iterative reconstruction technique were employed. The dose-alex gth product was 446.84 mGy-cm. COMPARISON: None FINDINGS: There is enlargement of the right parotid gland with increased density and surrounding fat stranding. There is fat stranding around the left parotid gland. No sialolith. There is a thrombosed stent in the right internal carotid artery. There is mucosal thickening in the pharynx on the right. There is fluid in the esophagus. There are no pathologically enlarged lymph nodes. There are changes of right-sided craniotomy. There is a small right mastoid effusion. There is an old healed fracture o f right clavicle. There is an old healed fracture of left clavicle. There is mild cervical spondylosi s. There are plates and screws at the anterior aden of the maxillary sinuses. There are fracture def ormities of the nasal bones. IMPRESSION: 1. Bilateral parotiditis, right worse than left. 2. Thrombosed stent in the right internal carotid artery. Reviewed, dictated and finalized at location A. [employer]
[2024-06-07 17:34] VITALS: BP 106/77; PULSE 94; RESP 18; TEMP 36.4; O2SAT 98
[2024-06-07 17:36] VITALS: RESP 12; O2SAT 100
--- NOTE | 2024-06-07 18:14 | ED_ITS ---
HPI - General Adult General Chief complaint: Unspecified Stated complaint: pain/swelling to R face Time Seen by Provider: 06/07/24 17:37 Source: patient Mode of arrival: EMS Limitations: clinical condition History of Present Illness HPI narrative: Patient is a 53-year-old male who presents to ED via EMS with report of swelling to hand right-sided jaw. Patient is resident of [facility]. Hx of CVA with L sided deficits, COPD, DM, kidney failure, YI. Currently on hospice care with [facility]. [place] staff reportedly noticed patient to have redness, swelling to right-sided face today. Patient c/o pain to R sided face/jaw. Denies any difficulty breathing or swelling. Denies fevers. Related Data Home Medications ?Medication ?Instructions ?Recorded ?Confirmed ?Last Taken ?Type levetiracetam 500 mg tablet 500 mg PO DAILY 11/03/23 01/03/24 Unknown History acetaminophen 325 mg tablet 650 mg PO Q6H PRN Pain (Scale 01/03/24 01/03/24 Unknown History (Tylenol) Score 1-3) hydromorphone 4 mg tablet 6 mg PO Q2H PRN Breakthrough Pain 01/03/24 01/03/24 Unknown History hydromorphone 4 mg tablet 6 mg PO Q6H 01/03/24 01/03/24 Unknown History hyoscyamine sulfate 0.125 mg 0.125 mg PO Q4H PRN Abdominal Pain 01/03/24 01/03/24 Unknown History sublingual tablet (Levsin/SL) lorazepam 1 mg tablet 1 mg PO Q4H PRN Anxiety 01/03/24 01/03/24 Unknown History lorazepam 1 mg tablet 1 mg PO Q8H 01/03/24 01/03/24 Unknown History morphine concentrate 100 mg/5 mL 5 mg PO Q4H PRN Pain (Scale Score 01/03/24 01/03/24 Unknown History (20 mg/mL) oral solution 7-10) ondansetron 4 mg disintegrating 4 mg PO Q6H PRN Nausea And Vomiting 01/03/24 01/03/24 Unknown History tablet polyethylene glycol 3350 17 gram 17 g PO DAILY PRN Constipation 01/03/24 01/03/24 Unknown History oral powder packet (Miralax) sennosides 8.6 mg tablet (senna) 17.2 mg PO BID 01/03/24 01/03/24 Unknown History Allergies Allergy/AdvReac Type Severity Reaction Status Date / Time metformin Allergy Hives Verified 11/03/23 04:42 Review of Systems 2 Review of Systems: All systems reviewed & are unremarkable except as noted in HPI. All systems reviewed & are unremarkable except as noted in HPI and below PMFSH Past Medical History Medical History Cerebrovascular accident Residual left-sided deficits. Chronic anemia Insulin dependent type 2 diabetes mellitus Liver cirrhosis secondary to YI Chronic kidney disease Hypothyroidism Seizure Nephrolithiasis Surgical History Surgical History History of nephrostomy Family History Family History Other Family history non-contributory Social History Social History Social History: Surrogate medical decision maker: Bisi Hsu, mother. Code status: Do not resuscitate, on hospice. Smoking status: Former smoker Tobacco type: cigarettes Second hand tobacco smoke exposure: No Alcohol intake: unknown Substance use: unknown Do You Feel Safe in your Home?: Yes Lack of Transportation: No Lack of Food: Never True Current Housing: I Have Housing Concerned About Future Housing: No Difficulty Paying Gas/Electric Bills: No Difficulty Paying for Meds: No Currently Unemployed: No Education: Don't Know Difficulty w/ Childcare or Family Care: No Spiritual care concerns: No Exam 2 Narrative: GENERAL: Chronically ill appearing, in no acute distress. HEAD: Normocephalic, atraumatic. ENT: Moderate swelling to R lateral jaw/lateral facial cheek with erythema and warmth, focal TTP. Able to open and close mouth, no trismus or stridor. Mucous membranes are severely dry, tongue very dry. Edentulous. No tenderness to palpation along upper/lower right-sided gumline. No focal fluctuance. RESPIRATORY: Airway patent, respirations nonlabored. Clear to auscultation bilaterally. CARDIOVASCULAR: Regular rate and rhythm without murmurs, rubs, or gallops. MUSCULOSKELETAL: No gross deformities. SKIN: Warm, dry, normal color. NEURO: Alert, able to answer yes/no to some questions. Chronic L sided deficits. PSYCHIATRIC: Flat affect. Answers some questions. Course Vital Signs Vital signs: Vital Signs Temperature 97.5 F L 06/07/24 17:34 Pulse Rate 94 06/07/24 17:34 Respiratory Rate 18 06/07/24 17:34 Blood Pressure 106/77 06/07/24 17:34 Pulse Oximetry 98 06/07/24 17:34 Temperature 97.5 F L 06/07/24 17:34 Pulse Rate 103 H 06/08/24 01:54 Respiratory Rate 20 06/08/24 01:54 Blood Pressure 99/73 L 06/08/24 01:54 Pulse Oximetry 97 06/08/24 01:54 Medical Decision Making MDM Narrative Medical decision making narrative: Patient presented to ED with right-sided facial swelling, currently on hospice. No evidence of airway compromise. No evidence of dental infection or dental abscess. Vitals are stable. Patient is afebrile. No hypoxia. I did discuss case with patient's mother/POA, she is agreeable with proceeding with workup. Laboratory studies without leukocytosis. Stable H&H, consistent with previous records. Thrombocytopenia also consistent with previous records. CMP with potassium 3.2, oral replacement given. Patient also given fluids. Creatinine consistent with baseline. CRP mildly elevated to 4.6. CT soft tissue neck was obtained and showing bilateral parotiditis, right greater than left. Patient is without any swelling, tenderness, redness to left-sided jaw. Will treat for this given symptomatic findings on R. CT soft tissue neck did incidentally show thrombosis of right carotid stent. Patient is not on any anticoagulation. He is currently on hospice. Will discuss with hospice team. Discussed with Noé Leon hospice nurse, will discuss with family and hospice physician and call back. Discussed with Dr. Israel Holt, hospice physician, advised no further workup indicated for thrombosed stent, will not pursue further workup for this given patient's hospice status. Is agreeable to plan for oral antibiotics and outpatient therapy. Patient will be started on Augmentin. Dr. Holt will follow-up with patient in person on Wednesday. I did discuss this with patient's POA/mother, who is agreeable to plan. Patient will be discharged back to snf. Has been stable throughout ED stay. D/C in stable condition. Medical Records Medical records reviewed: Yes I reviewed the external patient's medical records. Vital Signs Vital Signs: Vital Signs Temperature 97.5 F L 06/07/24 17:34 Pulse Rate 94 06/07/24 17:34 Respiratory Rate 18 06/07/24 17:34 Blood Pressure 106/77 06/07/24 17:34 Pulse Oximetry 98 06/07/24 17:34 Temperature 97.5 F L 06/07/24 17:34 Pulse Rate 103 H 06/08/24 01:54 Respiratory Rate 20 06/08/24 01:54 Blood Pressure 99/73 L 06/08/24 01:54 Pulse Oximetry 97 06/08/24 01:54 Lab Data Lab results reviewed: Yes I reviewed the patient's lab results. 06/07/24 18:33 06/07/24 18:33 Labs: Lab Results 06/07/24 Range/Units 18:33 WBC 8.1 (4.5-10.0) K/mm3 RBC 3.05 L (4.6-6.20) M/mm3 Hgb 9.5 L (14.0-18.0) g/dL Hct 29.0 L (42.0-52.0) % MCV 95.1 (80-100) fl MCH 31.1 (26-34) pg MCHC 32.8 (32-36) g/dl RDW 16.7 H (11.5-14.5) % Plt Count 87 L D (150-375) k/mm3 MPV 9.5 (7.4-10.4) fl Immature Gran % (Auto) 0.5 (0-0.5) % Neut % (Auto) 76.3 H (45.5-73.1) % Lymph % (Auto) 14.3 L (18.3-44.2) % Bowie % (Auto) 6.3 (2.6-8.5) % Eos % (Auto) 2.0 (0-4.4) % Baso % (Auto) 0.6 (0.2-1.2) % Lymph # (Auto) 1.16 (0.9-3.2) K/mm3 Bowie # (Auto) 0.5 (0.1-0.6) K/mm3 Eos # (Auto) 0.2 (0-0.3) K/mm3 Baso # (Auto) 0.1 (0.0-0.1) K/mm3 Abs Immat Gran (auto) 0.04 H (0.00-0.031) K/mm3 Absolute Neuts (auto) 6.2 (1.3-6.7) K/mm3 Absolute Nucleated RBC 0.000 (0.0-0.012) K/mm3 Nucleated RBC % 0.0 (0.0-0.2) % % Immature Plt Fraction 1.6 (0.9-11.2) % Sodium 136 L (137-145) mmol/L Potassium 3.2 L (3.4-5.0) mmol/L Chloride 113 H (98-107) mmol/L Carbon Dioxide 20 L (22-30) mmol/L Anion Gap 3 L (4-12) mmol/L BUN 19 (9-20) mg/dL Creatinine 2.00 H (0.7-1.3) mg/dL Estim Creat Clear Calc 44 ml/min Estimated GFR 35 L (59 - ) Glucose 94 (65-110) mg/dL Lactic Acid 0.8 (0.7-2.0) mmol/L Calcium 8.5 (8.4-10.2) mg/dL Total Bilirubin 1.4 H (0.2-1.3) mg/dL AST 27 (17-59) U/L ALT 8 (6-50) U/L Alkaline Phosphatase 98 (38-126) U/L C-Reactive Protein 4.6 H (<1.0) mg/dL Total Protein 8.0 (6.3-8.2) g/dL Albumin 3.0 L (3.5-5.1) g/dL Imaging Data Attestation: I personally reviewed and interpreted this imaging study as follows: Radiologist's impression: ITS Impressions Soft Tissue Neck CT 06/07/24 19:10 IMPRESSION: 1. Bilateral parotiditis, right worse than left. 2. Thrombosed stent in the right internal carotid artery. Discharge Plan Discharge Clinical Impression: Acute suppurative parotitis Patient Disposition: Hospice - Home Condition: Stable Instructions: Parotid Duct Obstruction (ED) Additional Instructions: Take antibiotics as prescribed. Encourage plenty of hydration. Nursing staff may gently massage right-sided jaw or place warm compresses to jaw. Recommend Tylenol as needed for fevers. Follow-up with hospice for further evaluation and management. Patient Language: Sami Prescriptions: New amoxicillin-pot clavulanate 875-125 mg tablet 1 tablet PO Q12H 10 Days Qty: 20 0RF No Action levetiracetam 500 mg Tablet 500 mg PO DAILY sennosides [senna] 8.6 mg Tablet 17.2 mg PO BID acetaminophen [Tylenol] 325 mg Tablet 650 mg PO Q6H PRN (Reason: Pain (Scale Score 1-3)) polyethylene glycol 3350 [Miralax] 17 gram Powder In Packet 17 g PO DAILY PRN (Reason: Constipation) morphine concentrate 100 mg/5 mL (20 mg/mL) Solution 5 mg PO Q4H PRN (Reason: Pain (Scale Score 7-10)) hyoscyamine sulfate [Levsin/SL] 0.125 mg Tablet, Sublingual 0.125 mg PO Q4H PRN (Reason: Abdominal Pain) lorazepam 1 mg Tablet 1 mg PO Q8H lorazepam 1 mg Tablet 1 mg PO Q4H PRN (Reason: Anxiety) hydromorphone 4 mg Tablet 6 mg PO Q2H PRN (Reason: Breakthrough Pain) hydromorphone 4 mg Tablet 6 mg PO Q6H Rx Instructions: 05-31- ondansetron 4 mg Tablet,Disintegrating 4 mg PO Q6H PRN (Reason: Nausea And Vomiting) amoxicillin-pot clavulanate 875-125 mg tablet 1 tablet PO Q12H Qty: 14 0RF Follow-up/Referrals: Nathanael,MD Idris [Primary Care Provider] - Time of Disposition: 20:32
[2024-06-07 18:32] VITALS: BP 116/85; PULSE 95; RESP 12; O2SAT 100
[2024-06-07 18:40] LABS: Basophils Absolute Auto 0.1 K/mm3 (0.0-0.1); Basophils Percent Auto 0.6 % (0.2-1.2); Eosinophils Absolute Auto 0.2 K/mm3 (0-0.3); Hemoglobin 9.5 g/dL (14.0-18.0); Immature Granulocyte Absolute 0.04 K/mm3 (0.00-0.031); Immature Granulocyte Percent A 0.5 % (0-0.5); Immature Platelet Fraction Pct 1.6 % (0.9-11.2); Lymphocytes Absolute Auto 1.16 K/mm3 (0.9-3.2); Lymphocytes Percent Auto 14.3 % (18.3-44.2); Mean Corpuscular HGB Conc 32.8 g/dl (32-36); Mean Corpuscular Hemoglobin 31.1 pg (26-34); Mean Corpuscular Volume 95.1 fl (80-100); Mean Platelet Volume 9.5 fl (7.4-10.4); Monocytes Absolute Auto 0.5 K/mm3 (0.1-0.6); Monocytes Percent Auto 6.3 % (2.6-8.5); Neutrophils Absolute Auto 6.2 K/mm3 (1.3-6.7); Neutrophils Percent Auto 76.3 % (45.5-73.1); Platelet Count Result 87 k/mm3 (150-375); Red Blood Count 3.05 M/mm3 (4.6-6.20); Red Cell Distribution Width 16.7 % (11.5-14.5); White Blood Count 8.1 K/mm3 (4.5-10.0)
--- NOTE | 2024-06-07 18:40 | PC.NURSE ---
Olga with [facility] called for update on pt. States she can be called back at [phone] when pt d/c.
[2024-06-07 18:50] LABS: Lactic Acid Reflex 0.8 mmol/L (0.7-2.0)
[2024-06-07 18:52] LABS: Alanine Aminotransferase 8 U/L (6-50); Alkaline Phosphatase 98 U/L (38-126); Anion Gap 3 mmol/L (4-12); Aspartate Amino Transferase 27 U/L (17-59); Bilirubin,Total 1.4 mg/dL (0.2-1.3); Blood Urea Nitrogen 19 mg/dL (9-20); CRP 4.6 mg/dL (<1.0); Calcium 8.5 mg/dL (8.4-10.2); Carbon Dioxide 20 mmol/L (22-30); Chloride 113 mmol/L (98-107); Estimated CRCL calculation 44 ml/min; Estimated Glomerular Filt Rate 35; Glucose 94 mg/dL (65-110); Potassium 3.2 mmol/L (3.4-5.0); Sodium 136 mmol/L (137-145)
[2024-06-07] MEDS: SODIUM CHLORIDE 0.9% IV 1,000 ML 999 ML IV CONT (19:11)
[2024-06-07 19:29] VITALS: BP 105/75; PULSE 83; RESP 13; O2SAT 98
--- NOTE | 2024-06-07 20:10 | PC.NURSE ---
RN attempted to irrigate pt right ear but had no luck. MIGUEL Beltran notified.
[2024-06-07] MEDS: CARBAMIDE PEROXIDE 6.5% OT SOLN 15 ML BTL 5 DROP RIGHT EAR (20:19)
[2024-06-07] MEDS: AMOXICILLIN/CLAVULANATE K 875-125 MG TAB 1 TABLET PO (20:19)
[2024-06-07] MEDS: POTASSIUM CHLORIDE 20 MEQ PACKET (FOR LIQUID) 40 MEQ PO (20:39)
[2024-06-07 20:42] VITALS: BP 97/64; PULSE 96; RESP 11; O2SAT 98
--- NOTE | 2024-06-07 21:03 | PC.NURSE ---
This Rn spoke with Olga from hospice and agve her update on pt at 2040
[2024-06-07 22:53] VITALS: BP 96/69; PULSE 99; RESP 14; O2SAT 98
[2024-06-08] VITALS (11 sets, daily range): BP systolic 97–105; BP diastolic 68–83; PULSE 95–118; RESP 12–27; O2SAT 95–100
--- NOTE | 2024-06-08 06:10 | PC.NURSE ---
ED real estate legal secretary called EMS rig for pt fpr updated ETA. New ETA for pt to [facility] is [id number].
--- NOTE | 2024-06-08 07:11 | PC.NURSE ---
RN gave report to [facility] and gave report/update on pt at this time. RN spoke with his nurse Tatiana.
--- NOTE | 2024-06-08 07:40 | PC.NURSE ---
Pt resting in no acute distress at this time. Pt updated, still awaiting transport back to facility. Pt denies any needs at this time. Call light in reach.
--- NOTE | 2024-06-08 08:35 | PC.NURSE ---
Pt provided beverage upon request. Repositioned in bed. VS as documented. Continuing to await transport. Additional blanket provided. Call light in reach.
--- OUTSIDE RECORDS SUMMARY | 2024-06-14 22:39 | XMS_ITS | Continuity of Care Document ---
Author Organization [facility] Address [address] [place] [address] Phone Care Team Providers Care Activities Leader Name Role Phone No Information Unavailable Unavailable Procedures Procedure Date MRI of cervical spine Office/outpatient visit,est, mod 2005 Drain/inject major jointor bursa 2005 [employer] Advance Directives Directive Yes / No Effective Date File Name No Information Encounters Encounter Description Practice Location Reason(s) For Visit Diagnoses Date Provider Providers Copied on Encounter [facility], [address] [place] [address], [id number], tel:[phone] No Information 7 No Information [facility], [address] [place] [address], [id number], tel:[phone] [facility] No Information 6 Kasandra Raymond. [address] [place] [address], [id number], . tel:[phone] Referring Provider: Segundo Slaughter, [address] [place] [address], [id number] . tel:[phone] Office/outpat ient visit,est, mod [facility], [address] [place] [address], [id number], tel:[phone] [facility] No Information 6 Kasandra Raymond. [address] [place] [address], [id number], . tel:[phone] Referring Provider: Kings Isabel, [facility] [address], [id number] . tel:[phone] Family History Family Member Type Diagnosis Age At Onset No Information Payers Payer name Insurance type Covered green party ID Authoriza tion(s) No Information Social History Type Description Quantity Date Captured Comments Sex Male Smoking Status No Information Chief Complaint And Reason For Visit No Information Reason For Referral Reason For Referral No Information History Of Present Illness Encounter Date Complaint History Of Prese nt Illness No Information Functional Status Date Functional Assessmen t No Information Instructions Date Instruction Additional Infor mation No Information Assessments Type Assessment Date No Information Patient Care Teams Name Effective Dates (start - stop) Status Members No Information
== END 2024-06-08 09:33 ==
PROVIDERS: Emergency Provider Physician Assistant; PCP Internal Medicine
DX: K11.21 Acute sialoadenitis (principal); D64.9 Anemia, unspecified; E11.9 Type 2 diabetes mellitus without complications; Z79.4 Long term (current) use of insulin; K75.81 Nonalcoholic steatohepatitis (NASH); N18.9 Chronic kidney disease, unspecified; E03.9 Hypothyroidism, unspecified; Z87.442 Personal history of urinary calculi; I69.80 Unspecified sequelae of other cerebrovascular disease
CPT/HCPCS: 36415; 70491; 80053; 83605; 85025; 85055; 86140; 96360; 99284; A9270; J7030; Q9967